=== PATIENT | female | born 1970 | race Caucasian/White ===

== ENCOUNTER → 2017-03-06 | Outpatient (CLI) | payer OTHER ==
[~2017-03-06] MED LIST: ESTR2TAB PO; L.AC1CAP6 PO; METO-270; MULT1TAB63 PO; OXYC-465 PO; PROBIOTIC
== END ==
LOC: RAD 08:52
PROVIDERS: ATTEND Obstetrics & Gynecology
DX: Z12.31 Encounter for screening mammogram for malignant neoplasm of breast (principal)
CPT/HCPCS: 77067

== ENCOUNTER → 2017-06-21 | Outpatient (CLI) | payer OTHER ==
[~2017-06-21] MED LIST changes: -METO-270; +METO-387
--- NOTE | 2017-06-21 12:16 | Diagnostic Imaging Report ---
EXAMINATION: Left upper extremity ultrasound. INDICATION: Arm lump. FINDINGS: Homogeneous hypoechoic mass with circumscribed margins is seen without internal vascularity measuring 3.8 x 1.6 x 4.6 cm centered in the subcutaneous fat. No fluid collection. No irregular or aggressive appearing margins. 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 The ultrasound appearance however is not specific. Correlate clinically. Dictated by: Dictated on workstation # [id number]
== END ==
LOC: RAD 11:39
PROVIDERS: ATTEND Surgery
DX: R22.32 Localized swelling, mass and lump, left upper limb (principal)
CPT/HCPCS: 76881

== ENCOUNTER 2017-09-05 13:40 | Day surgery (SDC) | payer OTHER ==
[2017-09-05] VITALS (10 sets, daily range): BP systolic 140–168; BP diastolic 77–97
[~2017-09-05] VITALS: Ht 172.7 cm; Wt 97.5 kg
--- OUTSIDE RECORDS SUMMARY | 2017-09-05 13:44 | XMS REPORT | Continuity of Care Document ---
Author Author [facility] Organization [facility] Address Unknown Phone Unavailable Allergies Active Description Code Type Severity Reaction Onset Reported/Identified Relationship to Patient Clinical Status Yes No Known Drug Allergies [id number] Drug Allergy Unknown N/A 06/23/2007 Medications There is no data. Problems Date Dx Coded Attending Type Code Diagnosis Diagnosed By 02/28/2015 ENEDINA IGNACIO, EMILIANO Farrar Ot V76.12 04/20/2015 Ot 786.59 04/20/2015 ENEDINA IGNACIO, EMILIANO Farrar Ot V76.12 04/20/2015 ENEDINA IGNACIO, EMILIANO Farrar Ot 240.9 04/20/2015 ENEDINA IGNACIO, EMILIANO Farrar Ot V76.12 04/20/2015 ENEDINA IGNACIO, EMILIANO Farrar Ot 240.9 04/20/2015 ENEDINA IGNACIO, EMILIANO Farrar Ot 246.2 04/20/2015 ENEDINA IGNACIO, EMILIANO Farrar Ot V76.12 04/20/2015 ENEDINA IGNACIO, EMILIANO Farrar Ot V82.9 04/20/2015 ENEDINA IGNACIO, EMILIANO Farrar Ot 793.80 04/20/2015 ENEDINA IGNACIO, EMIILANO Farrar Ot V76.12 05/06/2015 ASTRID IGNACIO, SARAH Marina Ot H53.8 05/06/2015 ASTRID IGNACIO, SARAH Marina Ot M54.2 05/06/2015 ASTRID IGNACIO, SARAH Marina Ot R13.10 05/06/2015 ASTRID IGNACIO, SARAH Marina Ot R51 11/20/2015 ENEDINA IGNACIO, EMILIANO Farrar Ot V76.12 OTH SCREEN MAMMO-MALIGN NEOPLASM OF [place]IP 11/20/2015 ENEDINA IGNACIO, EMILIANO Farrar Ot 240.9 GOITER NOS 11/20/2015 ENEDINA IGNACIO, EMILIANO Farrar Ot V76.12 OTH SCREEN MAMMO-MALIGN NEOPLASM OF [place] 11/20/2015 EMILIANO MCCONNELL MD Ot 240.9 GOITER NOS 11/20/2015 EMILIANO MCCONNELL MD Ot 246.2 CYST OF THYROID 11/20/2015 EMILIANO MCCONNELL MD, Ot V76.12 OTH SCREEN MAMMO-MALIGN NEOPLASM OF [place] 11/20/2015 EMILIANO MCCONNELL MD, Ot V82.9 SCREEN FOR CONDITION NOS 11/20/2015 EMILIANO MCCONNELL MD Ot 793.80 UNSPEC ABNORMAL MAMMOGRAM 11/20/2015 EMILIANO MCCONNELL MD, Ot V76.12 OTH SCREEN MAMMO-MALIGN NEOPLASM OF [place] 11/20/2015 SARAH RESENDIZ MD Ot H53.8 OTHER VISUAL DISTURBANCES 11/20/2015 SARAH RESENDIZ MD Ot M54.2 CERVICALGIA 11/20/2015 SARAH RESENDIZ MD Ot R13.10 DYSPHAGIA, UNSPECIFIED 11/20/2015 SARAH RESENDIZ MD Ot R51 HEADACHE 11/22/2015 CULLEN IGNACIO, JOSELIN Junior Ot G40.909 EPILEPSY, UNSP, NOT INTRACTABLE, WITHOUT 11/22/2015 CULLEN IGNACIO, JOSELIN Junior Ot I10 ESSENTIAL (PRIMARY) HYPERTENSION 11/29/2015 EMILIANO MCCONNELL MD Ot V76.12 OTH SCREEN MAMMO-MALIGN NEOPLASM OF [place] 11/29/2015 EMILIANO MCCONNELL MD Ot 240.9 GOITER NOS 11/29/2015 EMILIANO MCCONNELL MD, Ot V76.12 OTH SCREEN MAMMO-MALIGN NEOPLASM OF [place]IP 11/29/2015 EMILIANO MCCONNELL MD Ot 240.9 GOITER NOS 11/29/2015 EMILIANO MCCONNELL MD Ot 246.2 CYST OF THYROID 11/29/2015 EMILIANO MCCONNELL MD, Ot V76.12 OTH SCREEN MAMMO-MALIGN NEOPLASM OF [place]IP 11/29/2015 EMILIANO MCCONNELL MD Ot V82.9 SCREEN FOR CONDITION NOS 11/29/2015 EMILIANO MCCONNELL MD Ot 793.80 UNSPEC ABNORMAL MAMMOGRAM 11/29/2015 EMILIANO MCCONNELL MD, Ot V76.12 OTH SCREEN MAMMO-MALIGN NEOPLASM OF [place]IP 11/29/2015 SARAH RESENDIZ MD Ot H53.8 OTHER VISUAL DISTURBANCES 11/29/2015 SARAH RESENDIZ MD Ot M54.2 CERVICALGIA 11/29/2015 SARAH RESENDIZ MD Ot R13.10 DYSPHAGIA, UNSPECIFIED 11/29/2015 SARAH RESENDIZ MD Ot R51 HEADACHE 12/17/2015 EMILIANO MCCONNELL MD Ot V76.12 OTH SCREEN MAMMO-MALIGN NEOPLASM OF [place] 12/17/2015 EMILIANO MCCONNELL MD Ot 240.9 GOITER NOS 12/17/2015 EMILIANO MCCONNELL MD Ot V76.12 OTH SCREEN MAMMO-MALIGN NEOPLASM OF [place]IP 12/17/2015 EMILIANO MCCONNELL MD Ot 240.9 GOITER NOS 12/17/2015 EMILIANO MCCONNELL MD Ot 246.2 CYST OF THYROID 12/17/2015 EMILIANO MCCONNELL MD Ot V76.12 OTH SCREEN MAMMO-MALIGN NEOPLASM OF [place]IP 12/17/2015 EMILIANO MCCONNELL MD Ot V82.9 SCREEN FOR CONDITION NOS 12/17/2015 EMILIANO MCCONNELL MD Ot 793.80 UNSPEC ABNORMAL MAMMOGRAM 12/17/2015 EMILIANO MCCONNELL MD Ot V76.12 OTH SCREEN MAMMO-MALIGN NEOPLASM OF KIP 12/17/2015 SARAH RESENDIZ MD Ot H53.8 OTHER VISUAL DISTURBANCES 12/17/2015 SARAH RESENDIZ MD Ot M54.2 CERVICALGIA 12/17/2015 SARAH RESENDIZ MD Ot R13.10 DYSPHAGIA, UNSPECIFIED 12/17/2015 SARAH RESENDIZ MD Ot R51 HEADACHE 12/17/2015 LOUIS LEMOS MD Ot R06.02 SHORTNESS OF BREATH 12/17/2015 LOUIS LEMOS MD Ot R07.89 OTHER CHEST PAIN 12/17/2015 LOUIS LEMOS MD Ot R55 SYNCOPE AND COLLAPSE 12/20/2015 EMILIANO MCCONNELL MD Ot V76.12 OTH SCREEN MAMMO-MALIGN NEOPLASM OF [place] 12/20/2015 EMILIANO MCCONNELL MD Ot 240.9 GOITER NOS 12/20/2015 EMILIANO MCCONNELL MD, Ot V76.12 OTH SCREEN MAMMO-MALIGN NEOPLASM OF KIP 12/20/2015 EMILIANO MCCONNELL MD Ot 240.9 GOITER NOS 12/20/2015 EMILIANO MCCONNELL MD, Ot 246.2 CYST OF THYROID 12/20/2015 EMILIANO MCCONNELL MD, Ot V76.12 OTH SCREEN MAMMO-MALIGN NEOPLASM OF KIP 12/20/2015 EMILIANO MCCONNELL MD Ot V82.9 SCREEN FOR CONDITION NOS 12/20/2015 EMILIANO MCCONNELL MD Ot 793.80 UNSPEC ABNORMAL MAMMOGRAM 12/20/2015 EMILIANO MCCONNELL MD, Ot V76.12 OTH SCREEN MAMMO-MALIGN NEOPLASM OF KIP 12/20/2015 ASTRID IGNACIO, SARAH Marina Ot H53.8 OTHER VISUAL DISTURBANCES 12/20/2015 SARAH RESENDIZ MD Ot M54.2 CERVICALGIA 12/20/2015 ASTRID IGNACIO, SARAH Marina Ot R13.10 DYSPHAGIA, UNSPECIFIED 12/20/2015 ASTRID IGNACIO, SARAH Marina Ot R51 HEADACHE 12/20/2015 LOUIS LEMOS MD Ot R06.02 SHORTNESS OF BREATH 12/20/2015 LOUIS LEMOS MD Ot R07.89 OTHER CHEST PAIN 12/20/2015 LOUIS LEMOS MD Ot R55 SYNCOPE AND COLLAPSE 01/28/2016 EMILIANO MCCONNELL MD Ot V76.12 OTH SCREEN MAMMO-MALIGN NEOPLASM OF KIP 01/28/2016 EMILIANO MCCONNELL MD Ot 240.9 GOITER NOS 01/28/2016 EMILIANO MCCONNELL MD, Ot V76.12 OTH SCREEN MAMMO-MALIGN NEOPLASM OF KIP 01/28/2016 EMILIANO MCCONNELL MD Ot 240.9 GOITER NOS 01/28/2016 EMILIANO MCCONNELL MD, Ot 246.2 CYST OF THYROID 01/28/2016 EMILIANO MCCONNELL MD, Ot V76.12 OTH SCREEN MAMMO-MALIGN NEOPLASM OF [place]IP 01/28/2016 EMILIANO MCCONNELL MD Ot V82.9 SCREEN FOR CONDITION NOS 01/28/2016 EMILIANO MCCONNELL MD Ot 793.80 UNSPEC ABNORMAL MAMMOGRAM 01/28/2016 ENEDINA IGNACIO, EMILIANO Farrar Ot V76.12 OTH SCREEN MAMMO-MALIGN NEOPLASM OF KIP 01/28/2016 SARAH RESENDIZ MD Ot H53.8 OTHER VISUAL DISTURBANCES 01/28/2016 SARAH RESENDIZ MD Ot M54.2 CERVICALGIA 01/28/2016 SARAH RESENDIZ MD Ot R13.10 DYSPHAGIA, UNSPECIFIED 01/28/2016 SARAH RESENDIZ MD Ot R51 HEADACHE 01/28/2016 CANELO IGNACIO, LOUIS Benavides Ot R06.02 SHORTNESS OF BREATH 01/28/2016 LOUIS LEMOS MD Ot R07.89 OTHER CHEST PAIN 01/28/2016 LOUIS LEMOS MD Ot R55 SYNCOPE AND COLLAPSE 01/28/2016 GONZALO JONES MD Ot R42 DIZZINESS AND GIDDINESS 01/28/2016 GONZALO JONES MD Ot R55 SYNCOPE AND COLLAPSE 01/28/2016 GONZALO JONES MD Ot T67.5XXA HEAT EXHAUSTION, UNSPECIFIED, INITIAL EN 01/30/2016 GONZALO JONES MD Ot R42 DIZZINESS AND GIDDINESS 01/30/2016 GONZALO JONES MD Ot R55 SYNCOPE AND COLLAPSE 01/30/2016 GONZALO JONES MD Ot T67.5XXA HEAT EXHAUSTION, UNSPECIFIED, INITIAL EN 01/30/2016 GONZALO JONES MD Ot R42 DIZZINESS AND GIDDINESS 01/30/2016 GONZALO JONES MD Ot R55 SYNCOPE AND COLLAPSE 01/30/2016 GONZALO JONES MD Ot T67.5XXA HEAT EXHAUSTION, UNSPECIFIED, INITIAL EN 02/01/2016 GONZALO JONES MD Ot R42 DIZZINESS AND GIDDINESS 02/01/2016 GONZALO JONES MD Ot R55 SYNCOPE AND COLLAPSE 02/01/2016 GONZALO JONES MD Ot T67.5XXA HEAT EXHAUSTION, UNSPECIFIED, INITIAL EN 03/07/2016 EMILIANO MCCONNELL MD Ot 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 03/08/2016 EMILIANO MCCONNELL MD Ot 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 03/30/2016 EMILIANO MCCONNELL MD Ot 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 04/04/2016 EMILIANO MCCONNELL MD, Ot 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 04/20/2016 EMILIANO MCCONNELL MD, Ot V76.12 OTH SCREEN MAMMO-MALIGN NEOPLASM OF KIP 04/20/2016 EMILIANO MCCONNELL MD Ot 240.9 GOITER NOS 04/20/2016 EMILIANO MCCONNELL MD, Ot V76.12 OTH SCREEN MAMMO-MALIGN NEOPLASM OF KIP 04/20/2016 EMILIANO MCCONNELL MD Ot 240.9 GOITER NOS 04/20/2016 EMILIANO MCCONNELL MD Ot 246.2 CYST OF THYROID 04/20/2016 EMILIANO MCCONNELL MD, Ot V76.12 OTH SCREEN MAMMO-MALIGN NEOPLASM OF KIP 04/20/2016 EMILIANO MCCONNELL MD Ot V82.9 SCREEN FOR CONDITION NOS 04/20/2016 EMILIANO MCCONNELL MD Ot 793.80 UNSPEC ABNORMAL MAMMOGRAM 04/20/2016 EMILIANO MCCONNELL MD, Ot V76.12 OTH SCREEN MAMMO-MALIGN NEOPLASM OF KIP 04/20/2016 SARAH RESENDIZ MD Ot H53.8 OTHER VISUAL DISTURBANCES 04/20/2016 SARAH RESENDIZ MD Ot M54.2 CERVICALGIA 04/20/2016 SARAH RESENDIZ MD Ot R13.10 DYSPHAGIA, UNSPECIFIED 04/20/2016 SARAH RESENDIZ MD Ot R51 HEADACHE 04/20/2016 LOUIS LEMOS MD Ot R06.02 SHORTNESS OF BREATH 04/20/2016 LOUIS LEMOS MD Ot R07.89 OTHER CHEST PAIN 04/20/2016 LOUIS LEMOS MD Ot R55 SYNCOPE AND COLLAPSE 04/20/2016 LOUIS LEMOS MD Ot I10 ESSENTIAL (PRIMARY) HYPERTENSION 04/20/2016 LOUIS LEMOS MD Ot I25.10 ATHSCL HEART DISEASE OF [place] CORONARY 04/20/2016 LOUIS LEMOS MD Ot R07.89 OTHER CHEST PAIN 04/20/2016 LOUIS LEMOS MD Ot R55 SYNCOPE AND COLLAPSE 04/20/2016 EMILIANO MCCONNELL MD, Ot 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 04/20/2016 EMILIANO MCCONNELL MD, Ot 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 04/20/2016 LEE COBIAN MD Ot D64.9 ANEMIA, UNSPECIFIED 04/20/2016 LEE COBIAN MD Ot K82.8 OTHER SPECIFIED DISEASES OF [place]ALLBLAD[place] 04/20/2016 LEE COBIAN MD Ot N83.201 UNSPECIFIED OVARIAN CYST, RIGHT SIDE 04/20/2016 LEE COBIAN MD Ot Z01.812 ENCOUNTER FOR PREPROCEDURAL LABORATORY E 04/20/2016 LEE COBIAN MD, Ot Z11.2 ENCOUNTER FOR SCREENING FOR OTHER BACTER 04/23/2016 LEE COBIAN MD, Ot D64.9 ANEMIA, UNSPECIFIED 04/23/2016 LEE COBIAN MD Ot K82.8 OTHER SPECIFIED DISEASES OF [place] 04/23/2016 LEE COBIAN MD Ot N83.201 UNSPECIFIED OVARIAN CYST, RIGHT SIDE 04/23/2016 LEE COBIAN MD Ot Z01.812 ENCOUNTER FOR PREPROCEDURAL LABORATORY E 04/23/2016 LEE COBIAN MD Ot Z11.2 ENCOUNTER FOR SCREENING FOR OTHER BACTER 04/27/2016 LEE COBIAN MD Ot K81.1 CHRONIC CHOLECYSTITIS 04/27/2016 LEE COBIAN MD Ot N83.201 UNSPECIFIED OVARIAN CYST, RIGHT SIDE 04/27/2016 LEE COBIAN MD Ot R10.2 PELVIC AND PERINEAL PAIN 04/30/2016 LEE COBIAN MD Ot K81.1 CHRONIC CHOLECYSTITIS 04/30/2016 LEE COBIAN MD Ot N83.201 UNSPECIFIED OVARIAN CYST, RIGHT SIDE 04/30/2016 LEE COBIAN MD Ot R10.2 PELVIC AND PERINEAL PAIN 05/03/2016 SEVERIANO MALDONADO MD Ot G89.18 OTHER ACUTE POSTPROCEDURAL PAIN 05/03/2016 SEVERIANO MALDONADO MD Ot R10.31 RIGHT LOWER QUADRANT PAIN 05/08/2016 Sandi ALATORRE MD Ot 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 05/08/2016 Sandi ALATORRE MD Ot R55 SYNCOPE AND COLLAPSE 05/08/2016 CELI IGNACIO, Sandi JACOB Ot Z79.899 OTHER SHELTER (CURRENT) DRUG THERAPY 05/22/2016 Sandi ALATORRE MD Ot 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 05/22/2016 Sandi ALATORRE MD Ot R55 SYNCOPE AND COLLAPSE 05/22/2016 Sandi ALATORRE MD Ot Z79.899 OTHER SHELTER (CURRENT) DRUG THERAPY 05/24/2016 Sandi ALATORRE MD NIDIA Ot 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 05/24/2016 Sandi ALATORRE MD NIDIA Ot R55 SYNCOPE AND COLLAPSE 05/24/2016 Sandi ALATORRE MD Ot Z79.899 OTHER SHELTER (CURRENT) DRUG THERAPY 05/24/2016 Sandi ALATORRE MD Ot 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 05/24/2016 Sandi ALATORRE MD Ot R55 SYNCOPE AND COLLAPSE 05/24/2016 Sandi ALATORRE MD NIDIA Ot Z79.899 OTHER ASSOCIATE PROGRAMMER (CURRENT) DRUG THERAPY 03/04/2017 EMILIANO MCCONNELL MD Ot V76.12 OTH SCREEN MAMMO-MALIGN NEOPLASM OF KIP 03/04/2017 EMILIANO MCCONNELL MD Ot 240.9 GOITER NOS 03/04/2017 EMILIANO MCCONNELL MD Ot V76.12 OTH SCREEN MAMMO-MALIGN NEOPLASM OF [place] 03/04/2017 EMILIANO MCCONNELL MD Ot 240.9 GOITER NOS 03/04/2017 EMILIANO MCCONNELL MD Ot 246.2 CYST OF THYROID 03/04/2017 EMILIANO MCCONNELL MD, Ot V76.12 OTH SCREEN MAMMO-MALIGN NEOPLASM OF [place] 03/04/2017 EMILIANO MCCONNELL MD, Ot V82.9 SCREEN FOR CONDITION NOS 03/04/2017 EMILIANO MCCONNELL MD Ot 793.80 UNSPEC ABNORMAL MAMMOGRAM 03/04/2017 EMILIANO MCCONNELL MD, Ot V76.12 OTH SCREEN MAMMO-MALIGN NEOPLASM OF [place]IP 03/04/2017 SARAH RESENDIZ MD Ot H53.8 OTHER VISUAL DISTURBANCES 03/04/2017 SARAH RESENDIZ MD Ot M54.2 CERVICALGIA 03/04/2017 SARAH RESENDIZ MD Ot R13.10 DYSPHAGIA, UNSPECIFIED 03/04/2017 SARAH RESENDIZ MD Ot R51 HEADACHE 03/04/2017 LOUIS LEMOS MD Ot R06.02 SHORTNESS OF BREATH 03/04/2017 LOUIS LEMOS MD Ot R07.89 OTHER CHEST PAIN 03/04/2017 LOUIS LEMOS MD Ot R55 SYNCOPE AND COLLAPSE 03/04/2017 LOUIS LEMOS MD Ot I10 ESSENTIAL (PRIMARY) HYPERTENSION 03/04/2017 LOUIS LEMOS MD Ot I25.10 ATHSCL HEART DISEASE OF [place] CORONARY 03/04/2017 LOUIS LEMOS MD Ot R07.89 OTHER CHEST PAIN 03/04/2017 LOUIS LEMOS MD Ot R55 SYNCOPE AND COLLAPSE 03/04/2017 EMILIANO MCCONNELL MD Ot 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 03/04/2017 EMILIANO MCCONNELL MD, Ot 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 04/15/2017 EMILIANO MCCONNELL MD, Ot V76.12 OTH SCREEN MAMMO-MALIGN NEOPLASM OF KIP 04/15/2017 EMILIANO MCCONNELL MD Ot 240.9 GOITER NOS 04/15/2017 EMILIANO MCCONNELL MD, Ot V76.12 OTH SCREEN MAMMO-MALIGN NEOPLASM OF KIP 04/15/2017 EMILIANO MCCONNELL MD Ot 240.9 GOITER NOS 04/15/2017 EMILIANO MCCONNELL MD Ot 246.2 CYST OF THYROID 04/15/2017 EMILIANO MCCONNELL MD, Ot V76.12 OTH SCREEN MAMMO-MALIGN NEOPLASM OF KIP 04/15/2017 EMILIANO MCCONNELL MD, Ot V82.9 SCREEN FOR CONDITION NOS 04/15/2017 EMILIANO MCCONNELL MD Ot 793.80 UNSPEC ABNORMAL MAMMOGRAM 04/15/2017 EMILIANO MCCONNELL MD, Ot V76.12 OTH SCREEN MAMMO-MALIGN NEOPLASM OF KIP 04/15/2017 SARAH RESENDIZ MD Ot H53.8 OTHER VISUAL DISTURBANCES 04/15/2017 SARAH RESENDIZ MD Ot M54.2 CERVICALGIA 04/15/2017 SARAH RESENDIZ MD Ot R13.10 DYSPHAGIA, UNSPECIFIED 04/15/2017 SARAH RESENDIZ MD Ot R51 HEADACHE 04/15/2017 LOUIS LEMOS MD Ot R06.02 SHORTNESS OF BREATH 04/15/2017 LOUIS LEMOS MD Ot R07.89 OTHER CHEST PAIN 04/15/2017 LOUIS LEMOS MD Ot R55 SYNCOPE AND COLLAPSE 04/15/2017 LOUIS LEMOS MD Ot I10 ESSENTIAL (PRIMARY) HYPERTENSION 04/15/2017 LOUIS LEMOS MD Ot I25.10 ATHSCL HEART DISEASE OF [place] CORONARY 04/15/2017 LOUIS LEMOS MD Ot R07.89 OTHER CHEST PAIN 04/15/2017 LOUIS LEMOS MD Ot R55 SYNCOPE AND COLLAPSE 04/15/2017 EMILIANO MCCONNELL MD Ot 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 04/15/2017 EMILIANO MCCONNELL MD, Ot 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 04/15/2017 EMILIANO MCCONNELL MD, Ot Z12.31 ENCNTR SCREEN MAMMOGRAM FOR MALIGNANT NE 05/14/2017 EMILIANO MCCONNELL MD, Ot V76.12 OTH SCREEN MAMMO-MALIGN NEOPLASM OF KIP 05/14/2017 EMILIANO MCCONNELL MD Ot 240.9 GOITER NOS 05/14/2017 EMILIANO MCCONNELL MD, Ot V76.12 OTH SCREEN MAMMO-MALIGN NEOPLASM OF KIP 05/14/2017 EMILIANO MCCONNELL MD, Ot 240.9 GOITER NOS 05/14/2017 EMILIANO MCCONNELL MD, Ot 246.2 CYST OF THYROID 05/14/2017 EMILIANO MCCONNELL MD, Ot V76.12 OTH SCREEN MAMMO-MALIGN NEOPLASM OF KIP 05/14/2017 EMILIANO MCCONNELL MD, Ot V82.9 SCREEN FOR CONDITION NOS 05/14/2017 EMILIANO MCCONNELL MD Ot 793.80 UNSPEC ABNORMAL MAMMOGRAM 05/14/2017 EMILIANO MCCONNELL MD, Ot V76.12 OTH SCREEN MAMMO-MALIGN NEOPLASM OF KIP 05/14/2017 SARAH RESENDIZ MD Ot H53.8 OTHER VISUAL DISTURBANCES 05/14/2017 SARAH RESENDIZ MD Ot M54.2 CERVICALGIA 05/14/2017 SARAH RESENDIZ MD Ot R13.10 DYSPHAGIA, UNSPECIFIED 05/14/2017 SARAH RESENDIZ MD Ot R51 HEADACHE 05/14/2017 LOUIS LEMOS MD Ot R06.02 SHORTNESS OF BREATH 05/14/2017 LOUIS LEMOS MD Ot R07.89 OTHER CHEST PAIN 05/14/2017 LOUIS LEMOS MD Ot R55 SYNCOPE AND COLLAPSE 05/14/2017 LOUIS LEMOS MD Ot I10 ESSENTIAL (PRIMARY) HYPERTENSION 05/14/2017 LOUIS LEMOS MD Ot I25.10 ATHSCL HEART DISEASE OF [place] CORONARY 05/14/2017 LOUIS LEMOS MD Ot R07.89 OTHER CHEST PAIN 05/14/2017 LOUIS LEMOS MD Ot R55 SYNCOPE AND COLLAPSE 05/14/2017 EMILIANO MCCONNELL MD, Ot 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 05/14/2017 EMILIANO MCCONNELL MD, Ot 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 05/14/2017 EMILIANO MCCONNELL MD Ot Z12.31 ENCNTR SCREEN MAMMOGRAM FOR MALIGNANT NE 06/13/2017 EMILIANO MCCONNELL MD, Ot V76.12 OTH SCREEN MAMMO-MALIGN NEOPLASM OF KIP 06/13/2017 EMILIANO MCCONNELL MD Ot 240.9 GOITER NOS 06/13/2017 EMILIANO MCCONNELL MD, Ot V76.12 OTH SCREEN MAMMO-MALIGN NEOPLASM OF KIP 06/13/2017 EMILIANO MCCONNELL MD, Ot 240.9 GOITER NOS 06/13/2017 EMILIANO MCCONNELL MD Ot 246.2 CYST OF THYROID 06/13/2017 EMILIANO MCCONNELL MD, Ot V76.12 OTH SCREEN MAMMO-MALIGN NEOPLASM OF KIP 06/13/2017 EMILIANO MCCONNELL MD Ot V82.9 SCREEN FOR CONDITION NOS 06/13/2017 EMILIANO MCCONNELL MD Ot 793.80 UNSPEC ABNORMAL MAMMOGRAM 06/13/2017 EMILIANO MCCONNELL MD, Ot V76.12 OTH SCREEN MAMMO-MALIGN NEOPLASM OF KIP 06/13/2017 SARAH RESENDIZ MD Ot H53.8 OTHER VISUAL DISTURBANCES 06/13/2017 SARAH RESENDIZ MD Ot M54.2 CERVICALGIA 06/13/2017 SARAH RESENDIZ MD Ot R13.10 DYSPHAGIA, UNSPECIFIED 06/13/2017 SARAH RESENDIZ MD Ot R51 HEADACHE 06/13/2017 LOUIS LEMOS MD Ot R06.02 SHORTNESS OF BREATH 06/13/2017 LOUIS LEMOS MD Ot R07.89 OTHER CHEST PAIN 06/13/2017 LOUIS LEMOS MD Ot R55 SYNCOPE AND COLLAPSE 06/13/2017 LOUIS LEMOS MD Ot I10 ESSENTIAL (PRIMARY) HYPERTENSION 06/13/2017 LOUIS LEMOS MD Ot I25.10 ATHSCL HEART DISEASE OF [place] CORONARY 06/13/2017 LOUIS LEMOS MD Ot R07.89 OTHER CHEST PAIN 06/13/2017 LOUIS LEMOS MD Ot R55 SYNCOPE AND COLLAPSE 06/13/2017 EMILIANO MCCONNELL MD, Ot 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 06/13/2017 EMILIANO MCCONNELL MD, Ot 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 06/13/2017 EMILIANO MCCONNELL MD, Ot Z12.31 ENCNTR SCREEN MAMMOGRAM FOR MALIGNANT NE 06/13/2017 EMILIANO MCCONNELL MD, Ot V76.12 OTH SCREEN MAMMO-MALIGN NEOPLASM OF KIP 06/13/2017 EMILIANO MCCONNELL MD Ot 240.9 GOITER NOS 06/13/2017 EMILIANO MCCONNELL MD, Ot V76.12 OTH SCREEN MAMMO-MALIGN NEOPLASM OF KIP 06/13/2017 EMILIANO MCCONNELL MD Ot 240.9 GOITER NOS 06/13/2017 EMILIANO MCCONNELL MD, Ot 246.2 CYST OF THYROID 06/13/2017 EMILIANO MCCONNELL MD, Ot V76.12 OTH SCREEN MAMMO-MALIGN NEOPLASM OF KIP 06/13/2017 EMILIANO MCCONNELL MD, Ot V82.9 SCREEN FOR CONDITION NOS 06/13/2017 EMILIANO MCCONNELL MD Ot 793.80 UNSPEC ABNORMAL MAMMOGRAM 06/13/2017 EMILIANO MCCONNELL MD, Ot V76.12 OTH SCREEN MAMMO-MALIGN NEOPLASM OF KIP 06/13/2017 SARAH RESENDIZ MD Ot H53.8 OTHER VISUAL DISTURBANCES 06/13/2017 SARAH RESENDIZ MD Ot M54.2 CERVICALGIA 06/13/2017 SARAH RESENDIZ MD Ot R13.10 DYSPHAGIA, UNSPECIFIED 06/13/2017 SARAH RESENDIZ MD Ot R51 HEADACHE 06/13/2017 LOUIS LEMOS MD Ot R06.02 SHORTNESS OF BREATH 06/13/2017 LOUIS LEMOS MD Ot R07.89 OTHER CHEST PAIN 06/13/2017 LOUIS LEMOS MD Ot R55 SYNCOPE AND COLLAPSE 06/13/2017 LOUIS LEMOS MD Ot I10 ESSENTIAL (PRIMARY) HYPERTENSION 06/13/2017 LOUIS LEMOS MD Ot I25.10 ATHSCL HEART DISEASE OF [place] CORONARY 06/13/2017 LOUIS LEMOS MD Ot R07.89 OTHER CHEST PAIN 06/13/2017 LOUIS LEMOS MD Ot R55 SYNCOPE AND COLLAPSE 06/13/2017 EMILIANO MCCONNELL MD, Ot 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 06/13/2017 EMILIANO MCCONNELL MD, Ot 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 06/13/2017 EMILIANO MCCONNELL MD, Ot Z12.31 ENCNTR SCREEN MAMMOGRAM FOR MALIGNANT NE 06/18/2017 EMILIANO MCCONNELL MD, Ot V76.12 OTH SCREEN MAMMO-MALIGN NEOPLASM OF KIP 06/18/2017 EMILIANO MCCONNELL MD Ot 240.9 GOITER NOS 06/18/2017 EMILIANO MCCONNELL MD, Ot V76.12 OTH SCREEN MAMMO-MALIGN NEOPLASM OF [place] 06/18/2017 EMILIANO MCCONNELL MD Ot 240.9 GOITER NOS 06/18/2017 EMILIANO MCCONNELL MD Ot 246.2 CYST OF THYROID 06/18/2017 EMILIANO MCCONNELL MD, Ot V76.12 OTH SCREEN MAMMO-MALIGN NEOPLASM OF [place] 06/18/2017 EMILIANO MCCONNELL MD Ot V82.9 SCREEN FOR CONDITION NOS 06/18/2017 EMILIANO MCCONNELL MD Ot 793.80 UNSPEC ABNORMAL MAMMOGRAM 06/18/2017 EMILIANO MCCONNELL MD, Ot V76.12 OTH SCREEN MAMMO-MALIGN NEOPLASM OF [place] 06/18/2017 SARAH RESENDIZ MD Ot H53.8 OTHER VISUAL DISTURBANCES 06/18/2017 SARAH RESENDIZ MD Ot M54.2 CERVICALGIA 06/18/2017 SARAH RESENDIZ MD Ot R13.10 DYSPHAGIA, UNSPECIFIED 06/18/2017 SARAH RESENDIZ MD Ot R51 HEADACHE 06/18/2017 LOUIS LEMOS MD Ot R06.02 SHORTNESS OF BREATH 06/18/2017 LOUIS LEMOS MD Ot R07.89 OTHER CHEST PAIN 06/18/2017 LOUIS LEMOS MD Ot R55 SYNCOPE AND COLLAPSE 06/18/2017 LOUIS LEMOS MD Ot I10 ESSENTIAL (PRIMARY) HYPERTENSION 06/18/2017 LOUIS LEMOS MD Ot I25.10 ATHSCL HEART DISEASE OF [place] CORONARY 06/18/2017 LOUIS LEMOS MD Ot R07.89 OTHER CHEST PAIN 06/18/2017 LOUIS LEMOS MD Ot R55 SYNCOPE AND COLLAPSE 06/18/2017 EMILIANO MCCONNELL MD, Ot 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 06/18/2017 EMILIANO MCCONNELL MD, Ot 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 06/18/2017 EMILIANO MCCONNELL MD Ot Z12.31 ENCNTR SCREEN MAMMOGRAM FOR MALIGNANT NE 06/19/2017 EMILIANO MCCONNELL MD, Ot V76.12 OTH SCREEN MAMMO-MALIGN NEOPLASM OF [place] 06/19/2017 EMILIANO MCCONNELL MD Ot 240.9 GOITER NOS 06/19/2017 EMILIANO MCCONNELL MD, Ot V76.12 OTH SCREEN MAMMO-MALIGN NEOPLASM OF [place] 06/19/2017 EMILIANO MCCONNELL MD Ot 240.9 GOITER NOS 06/19/2017 EMILIANO MCCONNELL MD Ot 246.2 CYST OF THYROID 06/19/2017 EMILIANO MCCONNELL MD, Ot V76.12 OTH SCREEN MAMMO-MALIGN NEOPLASM OF [place] 06/19/2017 EMILIANO MCCONNELL MD Ot V82.9 SCREEN FOR CONDITION NOS 06/19/2017 EMILIANO MCCONNELL MD Ot 793.80 UNSPEC ABNORMAL MAMMOGRAM 06/19/2017 EMILIANO MCCONNELL MD, Ot V76.12 OTH SCREEN MAMMO-MALIGN NEOPLASM OF [place] 06/19/2017 SARAH RESENDIZ MD Ot H53.8 OTHER VISUAL DISTURBANCES 06/19/2017 SARAH RESENDIZ MD Ot M54.2 CERVICALGIA 06/19/2017 SARAH RESENDIZ MD Ot R13.10 DYSPHAGIA, UNSPECIFIED 06/19/2017 SARAH RESENDIZ MD Ot R51 HEADACHE 06/19/2017 LOUIS LEMOS MD Ot R06.02 SHORTNESS OF BREATH 06/19/2017 LOUIS LEMOS MD Ot R07.89 OTHER CHEST PAIN 06/19/2017 LOUIS LEMOS MD Ot R55 SYNCOPE AND COLLAPSE 06/19/2017 LOUIS LEMOS MD Ot I10 ESSENTIAL (PRIMARY) HYPERTENSION 06/19/2017 LOUIS LEMOS MD Ot I25.10 ATHSCL HEART DISEASE OF [place] CORONARY 06/19/2017 LOUIS LEMOS MD Ot R07.89 OTHER CHEST PAIN 06/19/2017 LOUIS LEMOS MD Ot R55 SYNCOPE AND COLLAPSE 06/19/2017 EMILIANO MCCONNELL MD, Ot 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 06/19/2017 EMILIANO MCCONNELL MD, Ot 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 06/19/2017 EMILIANO MCCONNELL MD, Ot Z12.31 ENCNTR SCREEN MAMMOGRAM FOR MALIGNANT NE 07/10/2017 EMILIANO MCCONNELL MD, Ot V76.12 OTH SCREEN MAMMO-MALIGN NEOPLASM OF [place] 07/10/2017 EMILIANO MCCONNELL MD Ot 240.9 GOITER NOS 07/10/2017 EMILIANO MCCONNELL MD, Ot V76.12 OTH SCREEN MAMMO-MALIGN NEOPLASM OF [place] 07/10/2017 EMILIANO MCCONNELL MD Ot 240.9 GOITER NOS 07/10/2017 EMILIANO MCCONNELL MD Ot 246.2 CYST OF THYROID 07/10/2017 EMILIANO MCCONNELL MD, Ot V76.12 OTH SCREEN MAMMO-MALIGN NEOPLASM OF [place] 07/10/2017 EMILIANO MCCONNELL MD Ot V82.9 SCREEN FOR CONDITION NOS 07/10/2017 EMILIANO MCCONNELL MD Ot 793.80 UNSPEC ABNORMAL MAMMOGRAM 07/10/2017 EMILIANO MCCONNELL MD, Ot V76.12 OTH SCREEN MAMMO-MALIGN NEOPLASM OF [place] 07/10/2017 SARAH RESENDIZ MD Ot H53.8 OTHER VISUAL DISTURBANCES 07/10/2017 SARAH RESENDIZ MD Ot M54.2 CERVICALGIA 07/10/2017 SARAH RESENDIZ MD Ot R13.10 DYSPHAGIA, UNSPECIFIED 07/10/2017 SARAH RESENDIZ MD Ot R51 HEADACHE 07/10/2017 LOUIS LEMOS MD Ot R06.02 SHORTNESS OF BREATH 07/10/2017 LOUIS LEMOS MD Ot R07.89 OTHER CHEST PAIN 07/10/2017 LOUIS LEMOS MD Ot R55 SYNCOPE AND COLLAPSE 07/10/2017 LOUIS LEMOS MD Ot I10 ESSENTIAL (PRIMARY) HYPERTENSION 07/10/2017 LOUIS LEMOS MD Ot I25.10 ATHSCL HEART DISEASE OF [place] CORONARY 07/10/2017 LOUIS LEMOS MD Ot R07.89 OTHER CHEST PAIN 07/10/2017 LOUIS LEMOS MD Ot R55 SYNCOPE AND COLLAPSE 07/10/2017 EMILIANO MCCONNELL MD Ot 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 07/10/2017 ENEDINA MD, EMILIANO G Ot 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 07/10/2017 EMILIANO MCCONNELL MD, Ot Z12.31 ENCNTR SCREEN MAMMOGRAM FOR MALIGNANT NE 07/10/2017 HUMBERTO IGNACIO, TAYLOR Junior Ot R22.32 LOCALIZED SWELLING, MASS AND LUMP, LEFT 08/05/2017 EMILIANO MCCONNELL MD, Ot V76.12 OTH SCREEN MAMMO-MALIGN NEOPLASM OF [place] 08/05/2017 EMILIANO MCCONNELL MD Ot 240.9 GOITER NOS 08/05/2017 EMILIANO MCCONNELL MD, Ot V76.12 OTH SCREEN MAMMO-MALIGN NEOPLASM OF [place] 08/05/2017 EMILIANO MCCONNELL MD Ot 240.9 GOITER NOS 08/05/2017 EMILIANO MCCONNELL MD Ot 246.2 CYST OF THYROID 08/05/2017 EMILIANO MCCONNELL MD, Ot V76.12 OTH SCREEN MAMMO-MALIGN NEOPLASM OF [place] 08/05/2017 EMILIANO MCCONNELL MD Ot V82.9 SCREEN FOR CONDITION NOS 08/05/2017 EMILIANO MCCONNELL MD Ot 793.80 UNSPEC ABNORMAL MAMMOGRAM 08/05/2017 EMILIANO MCCONNELL MD, Ot V76.12 OTH SCREEN MAMMO-MALIGN NEOPLASM OF [place] 08/05/2017 SARAH RESENDIZ MD Ot H53.8 OTHER VISUAL DISTURBANCES 08/05/2017 SARAH RESENDIZ MD Ot M54.2 CERVICALGIA 08/05/2017 SARAH RESENDIZ MD Ot R13.10 DYSPHAGIA, UNSPECIFIED 08/05/2017 SARAH RESENDIZ MD Ot R51 HEADACHE 08/05/2017 LOUIS LEMOS MD Ot R06.02 SHORTNESS OF BREATH 08/05/2017 LOUIS LEMOS MD Ot R07.89 OTHER CHEST PAIN 08/05/2017 LOUIS LEMOS MD Ot R55 SYNCOPE AND COLLAPSE 08/05/2017 LOUIS LEMOS MD Ot I10 ESSENTIAL (PRIMARY) HYPERTENSION 08/05/2017 LOUIS LEMOS MD Ot I25.10 ATHSCL HEART DISEASE OF [place] CORONARY 08/05/2017 LOUIS LEMOS MD Ot R07.89 OTHER CHEST PAIN 08/05/2017 CANELO IGNACIO, LOUIS Benavides Ot R55 SYNCOPE AND COLLAPSE 08/05/2017 EMILIANO MCCONNELL MD Ot 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 08/05/2017 EMILIANO MCCONNELL MD, Ot 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 08/05/2017 EMILIANO MCCONNELL MD Ot Z12.31 ENCNTR SCREEN MAMMOGRAM FOR MALIGNANT NE 08/05/2017 HUMBERTO IGNACIO, TAYLOR Junior Ot R22.32 LOCALIZED SWELLING, MASS AND LUMP, LEFT Procedures There is no data. Results Test Result Range Complete blood count (CBC) with automated white blood cell (WBC) differential - 04/20/16 09:25 Blood leukocytes automated count (number/volume) 7.5 10*3/uL 4.3-11.0 Blood erythrocytes automated count (number/volume) 4.86 10*6/uL 4.35-5.85 Venous blood hemoglobin measurement (mass/volume) 14.3 g/dL 11.5-16.0 Blood hematocrit (volume fraction) 43 % 35-52 Automated erythrocyte mean corpuscular volume 89 [foz_us] 80-99 Automated erythrocyte mean corpuscular hemoglobin (mass per erythrocyte) 29 pg 25-34 Automated erythrocyte mean corpuscular hemoglobin concentration measurement ( mass/volume) 33 g/dL 32-36 Automated erythrocyte distribution width ratio 12.7 % 10.0-14.5 Automated blood platelet count (count/volume) 313 10*3/uL 130-400 Automated blood platelet mean volume measurement 10.6 [foz_us] 7.4-10.4 Automated blood neutrophils/100 leukocytes 67 % 42-75 Automated blood lymphocytes/100 leukocytes 25 % 12-44 Blood monocytes/100 leukocytes 6 % 0-12 Automated blood eosinophils/100 leukocytes 1 % 0-10 Automated blood basophils/100 leukocytes 0 % 0-10 Blood neutrophils automated count (number/volume) 5.1 10*3 1.8-7.8 Blood lymphocytes automated count (number/volume) 1.9 10*3 1.0-4.0 Blood monocytes automated count (number/volume) 0.5 10*3 0.0-1.0 Automated eosinophil count 0.1 10*3/uL 0.0-0.3 Automated blood basophil count (count/volume) 0.0 10*3/uL 0.0-0.1 Methicillin resistant Staphylococcus aureus (MRSA) screening culture - 09:25 Methicillin resistant Staphylococcus aureus (MRSA) screening culture NEG NRG Complete blood count (CBC) with automated white blood cell (WBC) differential - 05/03/16 09:10 Blood leukocytes automated count (number/volume) 9.5 10*3/uL 4.3-11.0 Blood erythrocytes automated count (number/volume) 4.62 10*6/uL 4.35-5.85 Venous blood hemoglobin measurement (mass/volume) 13.6 g/dL 11.5-16.0 Blood hematocrit (volume fraction) 41 % 35-52 Automated erythrocyte mean corpuscular volume 89 [foz_us] 80-99 Automated erythrocyte mean corpuscular hemoglobin (mass per erythrocyte) 29 pg 25-34 Automated erythrocyte mean corpuscular hemoglobin concentration measurement ( mass/volume) 33 g/dL 32-36 Automated erythrocyte distribution width ratio 13.0 % 10.0-14.5 Automated blood platelet count (count/volume) 320 10*3/uL 130-400 Automated blood platelet mean volume measurement 10.0 [foz_us] 7.4-10.4 Automated blood neutrophils/100 leukocytes 63 % 42-75 Automated blood lymphocytes/100 leukocytes 24 % 12-44 Blood monocytes/100 leukocytes 8 % 0-12 Automated blood eosinophils/100 leukocytes 4 % 0-10 Automated blood basophils/100 leukocytes 0 % 0-10 Blood neutrophils automated count (number/volume) 6.0 10*3 1.8-7.8 Blood lymphocytes automated count (number/volume) 2.3 10*3 1.0-4.0 Blood monocytes automated count (number/volume) 0.8 10*3 0.0-1.0 Automated eosinophil count 0.4 10*3/uL 0.0-0.3 Automated blood basophil count (count/volume) 0.0 10*3/uL 0.0-0.1 Complete urinalysis with reflex to culture - 05/03/16 09:40 Urine color determination YELLOW NRG Urine clarity determination CLEAR NRG Urine pH measurement by test strip 5 5-9 Specific gravity of urine by test strip 1.010 1.016- 1.022 Urine protein assay by test strip, semi-quantitative NEGATIVE NEGATIVE Urine glucose detection by automated test strip NEGATIVE NEGATIVE Erythrocytes detection in urine sediment by light microscopy NEGATIVE NEGATIVE Urine ketones detection by automated test strip NEGATIVE NEGATIVE Urine nitrite detection by test strip NEGATIVE NEGATIVE Urine total bilirubin detection by test strip NEGATIVE NEGATIVE Urine urobilinogen measurement by automated test strip (mass/volume) NORMAL NORMAL Urine leukocyte esterase detection by dipstick NEGATIVE NEGATIVE Automated urine sediment erythrocyte count by microscopy (number/high power field) NONE NRG Automated urine sediment leukocyte count by microscopy (number/high power field ) NONE NRG Bacteria detection in urine sediment by light microscopy NEGATIVE NRG Squamous epithelial cells detection in urine sediment by light microscopy 5-10 NRG Crystals detection in urine sediment by light microscopy NONE NRG Casts detection in urine sediment by light microscopy PRESENT NRG Mucus detection in urine sediment by light microscopy NEGATIVE NRG Complete urinalysis with reflex to culture NO NRG Hyaline casts detection in urine sediment by light microscopy RARE NRG Encounters ACCT No. Visit Date/Time Discharge Status Pt. Type Provider Facility Loc./Unit Complaint [id number] 06/21/2017 11:39:00 06/21/2017 23:59:59 CLS Outpatient TAYLOR PAUL MD [facility] RAD LUMP LEFT UPPER ARM [id number] 03/06/2017 08:52:00 03/06/2017 23:59:59 CLS Outpatient EMILIANO MCCONNELL MD [facility] RAD SCREENING [id number] 05/08/2016 10:29:00 05/08/2016 11:57:00 DIS Outpatient Sandi ALATORRE MD [facility] CATH SYNCOPE [id number] 05/03/2016 08:39:00 05/03/2016 11:28:00 DIS Emergency SEVERIANO MALDONADO MD [facility] ER RIGHT SIDE PAIN [id number] 04/27/2016 10:59:00 04/27/2016 19:00:00 DIS Outpatient LEE COBIAN MD [facility] SDC DYSKENESIA;CPP [id number] 04/20/2016 09:02:00 04/20/2016 09:30:00 DIS Outpatient LEE COBIAN MD [facility] PREOP DYSKENESIA;CPP [id number] 03/29/2016 09:56:00 03/29/2016 23:59:59 CLS Outpatient EMILIANO MCCONNELL MD [facility] CARD BILIARY COLIC [id number] 03/07/2016 13:50:00 03/07/2016 23:59:59 CLS Outpatient LOUIS LEMOS MD [facility] CARD SYNCOPE,HTN,CAD [id number] 03/06/2016 07:32:00 03/06/2016 23:59:59 CLS Outpatient EMILIANO MCCONNELL MD [facility] RAD BILIARY COLIC, SCREENING [id number] 01/28/2016 09:37:00 01/28/2016 12:50:00 DIS Emergency ROBERT IGNACIO, GONZALO Quinones [facility] ER DIZZINESS/HEAT EXPOSURE [id number] 11/29/2015 07:21:00 11/29/2015 23:59:59 CLS Outpatient LOUIS LEMOS MD [facility] CARD CHEST PAIN SYNDROME, SYNCOPE,SOB,HTN [id number] 11/20/2015 13:40:00 11/22/2015 14:58:00 DIS Inpatient CULLEN IGNACIO, JOSELIN Junior [facility] 4TH ACUTE DYSPHORIC EPISODE [id number] 04/20/2015 15:07:00 04/20/2015 23:59:59 CLS Outpatient ASTRID IGNACIO, SARAH Marina [facility] RAD BLURRY VISION, NECK PAIN, DSYPHAGIA [id number] 02/11/2015 14:19:00 02/11/2015 23:59:59 CLS Outpatient EMILIANO MCCONNELL MD [facility] RAD SCREENING [id number] 02/09/2014 13:06:00 02/09/2014 23:59:59 CLS Outpatient EMILIANO MCCONNELL MD [facility] RAD ABNORMAL MAMMO [id number] 02/04/2014 09:59:00 02/04/2014 23:59:59 CLS Outpatient EMILIANO MCCONNELL MD [facility] RAD THYROID GOITER [id number] 02/02/2014 15:02:00 02/02/2014 23:59:59 CLS Outpatient EMILIANO MCCONNELL MD [facility] RAD SCREENING [id number] 01/29/2014 07:27:00 01/29/2014 23:59:59 CLS Outpatient EMILIANO MCCONNELL MD [facility] LAB SCREENING [id number] 01/14/2013 13:16:00 01/14/2013 23:59:59 CLS Outpatient EMILIANO MCCONNELL MD [facility] RAD SCREENING [id number] 09/09/2017 08:45:00 PEN Preadervin PAUL MD, TAYLOR Junior [facility] ENDO DYSPHAGIA/EPIGASTRIC PAIN/GERD CHRONIC [id number] 01/10/2010 11:47:00 Document Registration
[2017-09-05] MEDS ORDERED: NS IV 1000 ML 1,000 ML IV SCH ×4 (13:54→16:15)
[2017-09-05] MEDS ORDERED: NS IV 1000 ML 1,000 ML ONE (13:55)
[2017-09-05] MEDS ORDERED: LIDOCAINE 1% INJ 50 ML (XYLOCAINE) VIAL ONE (13:55)
[2017-09-05] MEDS ORDERED: HEParin (CATH LAB) 2,000 ML IV ONE (13:56)
[2017-09-05 14:10] LABS: HEMOGLOBIN 14.7 G/DL (11.5-16.0); RED BLOOD COUNT 4.9 10^6/uL (4.35-5.85); RED CELL DISTRIBUTION WIDTH 13.8 % (10.0-14.5); WHITE BLOOD COUNT 14.8 10^3/uL (4.3-11.0)
--- NOTE | 2017-09-05 14:17 | Diagnostic Imaging Report ---
INDICATION: Chest pain, hypertension, and palpitations. TIME OF EXAM: 2:04 p.m. COMPARISON: Correlation is made with prior study from 01/28/2016. FINDINGS: The heart size is stable. The lungs are clear. The pulmonary vascularity is normal. No infiltrate is detected. No effusion or pneumothorax is seen. Electronic device lies adjacent to the left heart border. IMPRESSION: No acute abnormality is detected. Dictated by: Dictated on workstation # [id number]
[2017-09-05 14:28] LABS: ALANINE AMINOTRANSFERASE 21 U/L (0-55); ALBUMIN 4.3 GM/DL (3.2-4.5); ALKALINE PHOSPHATASE 64 U/L (40-136); BILIRUBIN,TOTAL 0.4 MG/DL (0.1-1.0); BUN/CREATININE RATIO 15; CALCIUM 9.6 MG/DL (8.5-10.1); CARBON DIOXIDE 22 MMOL/L (21-32); CHLORIDE 102 MMOL/L (98-107); CREATININE SERUM 0.92 MG/DL (0.60-1.30); GFR ESTIMATED > 60; GLUCOSE 152 MG/DL (70-105); POTASSIUM 3.6 MMOL/L (3.6-5.0); SODIUM 138 MMOL/L (135-145); TOTAL PROTEIN 7.4 GM/DL (6.4-8.2)
[2017-09-05] MEDS ORDERED: PANT40SU PO (14:31)
[2017-09-05] MEDS ORDERED: MAGN500C15 PO (14:31)
[2017-09-05] MEDS ORDERED: AMLO2.5T PO (14:31)
[2017-09-05 14:49] LABS: BILIRUBIN,URINE NEGATIVE (NEGATIVE); CLARITY,URINE CLEAR; COLOR,URINE YELLOW; GLUCOSE, URINE (UA) NEGATIVE (NEGATIVE); KETONES,URINE NEGATIVE (NEGATIVE); LEUKOCYTE ESTERASE ,URINE NEGATIVE (NEGATIVE); NITRITE,URINE NEGATIVE (NEGATIVE); PH,URINE 5 (5-9); PROTEIN,URINE NEGATIVE (NEGATIVE); UROBILINOGEN,URINE NORMAL (NORMAL)
[2017-09-05] MEDS ORDERED: VERAPAMIL 5 MG/2 ML (CALAN) VIAL IV ONE (14:49)
[2017-09-05] MEDS ORDERED: diphenhydrAMINE 50 MG/ML INJ (BENADRYL) ONE (14:49)
[2017-09-05] MEDS ORDERED: MIDAZOLAM 5 MG/5 ML (VERSED) VIAL ONE (14:49)
[2017-09-05] MEDS ORDERED: HEParin 1000 UNIT/ML (10ML VIAL) FOR BOLUS ONE (14:50)
[2017-09-05] MEDS ORDERED: methylPREDNISolone 125 MG (Solu-MEDROL) VIAL ONE (14:50)
[2017-09-05 14:58] LABS: BACTERIA,URINE FEW /HPF; WBC,URINE 0-2 /HPF
[2017-09-05] MEDS ORDERED: NITRO DRIP 25000 MCG/D5W 250 ML IV ONE (15:14)
--- NOTE | 2017-09-05 15:49 | Discharge Inst-Post CATH ---
Discharge Inst-CATH Post Cardiac Cath D/C Inst Follow Up/Plan Appointment with Dr. Fiore's office in 2-4 weeks CARDIAC CATH DISCHARGE INSTRUCTIONS *Hold Metformin for 48 hours post heart cath. ACTIVITY * Go Home directly and rest. * Limit activity of the leg (or wrist if it was used) for 7 days including aerobics, swimming, jogging, bicycling, etc. * Restrict stair-climbing for 7 days if possible, if not, climb up with your non -cath leg, then bring together on the same step. * Avoid lifting, pushing, pulling or excessive movement of the affected extremity for 7 days. * Customary sexual activity may be resumed after 2 days-use caution not to use a position that strains or causes pain to the affected extremity. * No driving for 24 hours. * NO SMOKING. * Avoid straining for bowel movements for 7 days. * Gentle walking on level ground is allowed. * Returning to work will depend on the type of procedure and the results. Your doctor will discuss this with you. CALL YOUR DOCTOR FOR ANY OF THE FOLLOWING: *If bleeding from the puncture site occurs- Apply gentle pressure to site with clean cloth and call your doctor or EMS. * If a knot or lump forms under the skin, increases in size, or causes pain. * If bruising appears to be worsening or moving further down your leg instead of disappearing. * Temperature above 101 F. CARE OF YOUR GROIN INCISION; * Bruising or purple discoloration of the skin near the puncture site is common. * You may shower only, no bathtub bathing for 5 days. Be careful to avoid slipping as your leg may feel stiff. * If a closure device was used on your femoral artery, please see the attached guide regarding care of the device and your leg. * REMOVE the dressing from your groin the next day after your procedure in the shower. CARE OF YOUR WRIST INCISION; * Bruising or purple discoloration of the skin near the puncture site is common. * You may shower. * DO NOT submerge wrist. * Remove dressing in 24 hours. LOUIS FIORE MD Sep 05, 2017 15:49
--- NOTE | 2017-09-05 15:50 | Cardiac Procedure Note-CS/ASA ---
Pre-Procedure Note Pre-Op Procedure Note H&P Reviewed The H&P was reviewed, patient examined and no changes noted. Date H&P Reviewed: Sep 05, 2017 Time H&P Reviewed: 15:00 Conscious Sedation Pre-Proced Time Reviewed: 15:00 ASA Class: 3 Airway Mallampati Classification: ([place] appropriate class) I. II. III, IV Lungs Heart ASA score ASA 1: a normal healthy patient ASA 2: a patient with a mild systemic disease (mid diabetes, controlled hypertension, obesity x ASA 3: a patient with a severe systemic disease that limits activity (angina , COPD, prior Myocardial infarction) ASA 4: a patient with an incapacitating disease that is a constant threat to life (CHF, renal failure) ASA 5: a moribund patient not expected to survive 24 hrs. (ruptured aneurysm) ASA 6: a declared brain patient whose organs are being harvested. For emergent operations, add the letter E after the classification Grade 3 Sedation Plan: Analgesia, Amnesia, Plan communicated to team members, Discussed options with patient/fam, Discussed risks with patient/fam Note The patient is an appropriate candidate to undergo the planned procedure, sedation, and anesthesia. The patient immediately re-assessed prior to indication. LOUIS LEMOS MD Sep 05, 2017 15:50
--- NOTE | 2017-09-05 15:56 | Cardiac Cath Report ---
Cardiac Cath Report Physician (s)/Blast Furnace Tender (s) Physician LOUIS LEMOS MD Pre-Procedure Diagnosis Pre-Procedure Diagnosis: Chest pain, coronary artery disease Post-Procedure Note Procedure Start Date: Sep 05, 2017 Name of Procedure: Left heart catheterization Aortic root angiogram Findings/Procedure Note PROCEDURE NOTE: 46 years old lady with history of syncope, paroxysmal atrial tachycardia, started to have recurrent chest pain, described it as dull achiness in the retrosternal area associated with radiation to the left shoulder and left side of her neck and jaw, has been having increasing dyspnea on exertion, was fairly uncomfortable when she was seen in the office, EKG did not show any acute abnormality. Decided to proceed with cardiac catheterization due to her significant presentation. After explaining the procedure to the patient, all pros and cons were explained, all questions were answered. The patient signed the consent and then she was placed on the cardiac catheterization laboratory. The patient was placed on the cardiac catheterization laboratory. Groin and wrist were prepped SL fashion local anesthesia was used. Sheath placed in the right radial artery. Alejo catheter was used to access the coronary system Pigtail was used to access the left ventricular cavity. Left ventriculogram was done Aortic root angiogram was done At the end of the procedure the sheath was removed. Closure device vascular band FINDINGS: Hemodynamics LV 115/12, end-diastolic pressure of 12 Aorta 119/80 mean of 100 ANATOMY: Left Main is free of obstructive disease Left Anterior Descending is tortuous with slow flow, no significant obstructive disease Left Circumflex is free of obstructive disease Right Coronory Artery is tortuous with no significant disease LV Gram was done in the right anterior oblique position, left ventricular is normal, normal contractility, estimated ejection fraction 60 percent Aorta evaluation was done with aortic root angiogram, the aortic valve appeared to be normal, aortic root, ascending aorta arch and descending aorta appeared to be normal in size. No dissection or aneurysm was seen CONCLUSION: 1. Mild tortuosity in the LAD with slow flow due to small vessel disease otherwise no significant obstructive disease 2. Dominant right coronary system with nonobstructive disease 3. Normal left ventricular size and systolic function estimated ejection fraction 60 percent 4. Normal thoracic aorta and aortic root DISCUSSION AND RECOMMENDATION: Chest pain is unlikely to be cardiac in nature. Anesthesia Type: Conscious Sedation Estimated blood loss (mL): 10 ml Contrast Amount: 46 ml Total Radiation Dose: 366 mGy Post-Procedure Diagnosis Post-operative diagnosis: Chest pain nonspecific etiology Coronary artery disease Syncope Paroxysmal atrial tachycardia LOUIS LEMOS MD Sep 05, 2017 15:56
[2017-09-05] MEDS ORDERED: NS 100 ML (IVPB) BAG IV ONE (17:30)
[2017-09-05] MEDS ORDERED: IOHEXOL 350 MG/ML 100 ML (OMNIPAQUE 350) VIAL IV ONE (17:30)
--- NOTE | 2017-09-05 18:18 | Diagnostic Imaging Report ---
PROCEDURE: CT angiography of the chest with and without contrast. TECHNIQUE: Noncontrast CT of the chest was performed. Subsequently, after intravenous administration of contrast, thin section axial CT angiography of the chest was performed. MIP reconstructions were made. INDICATION: Elevated d-dimer, chest pain, recent heart catheterization. Patient was premedicated with Benadryl and Solu-Medrol. COMPARISON STUDY: CT of the abdomen from May 03, 2016. FINDINGS: No pulmonary emboli are present. There is no aortic dissection or aneurysm. The heart size is normal. No arteriosclerotic disease is seen. There are no pericardial or pleural effusions. No abnormal adenopathy is seen. Visualized portions of the abdomen demonstrate a small left renal calculi on the most inferior scan. The gallbladder is absent. Lung windows demonstrate the lungs to be essentially clear. Minimal dependent atelectasis is present in the lung bases. The osseous structures appear normal. IMPRESSION: There is mild bibasilar atelectasis. Small left renal calculi is present. No acute findings are seen. Dictated by: Dictated on workstation # [id number]
[2017-09-05] MEDS ORDERED: oxyCODONE/APAP 5/325MG (PERCOCET 5) TABLET PO NR (18:25)
[2017-09-06] MEDS ORDERED: LACT1CAP62 PO (11:40)
== END 2017-09-05 18:50 | disposition home or self-care (01) ==
LOC: CATH 13:40 → ICU 16:05 → CATH 18:50
PROVIDERS: ATTEND Internal Medicine Cardiovascular Disease
DX: R07.89 Other chest pain (principal); I25.10 Atherosclerotic heart disease of native coronary artery without angina pectoris; I47.1 Supraventricular tachycardia; R55 Syncope and collapse; I10 Essential (primary) hypertension; I34.0 Nonrheumatic mitral (valve) insufficiency; E78.5 Hyperlipidemia, unspecified; K21.9 Gastro-esophageal reflux disease without esophagitis; E66.9 Obesity, unspecified; Z68.32 Body mass index [BMI] 32.0-32.9, adult; Z82.49 Family history of ischemic heart disease and other diseases of the circulatory system
CPT/HCPCS: 36415; 71045; 71275; 80053; 81000; 84484; 85027; 85379; 85610; 85652; 85730; 87081

== ENCOUNTER 2017-09-06 11:30 | Outpatient (CLI) | payer OTHER ==
[~2017-09-06] VITALS: Ht 172.7 cm; Wt 97.5 kg
[~2017-09-06 11:30] MED LIST changes: +AMLO2.5T PO; +MAGN500C15 PO; +PANT40SU PO
[2017-09-06] MEDS ORDERED: LACT1CAP62 PO (11:40)
== END 2017-09-06 13:23 ==
LOC: PREOP 11:30
PROVIDERS: ATTEND Surgery
DX: Z01.818 Encounter for other preprocedural examination (principal); R13.10 Dysphagia, unspecified; R10.13 Epigastric pain; K21.9 Gastro-esophageal reflux disease without esophagitis
CPT/HCPCS: 93458; 93567

== ENCOUNTER 2017-09-09 07:53 | Day surgery (SDC) | payer OTHER ==
[~2017-09-09] VITALS: Ht 172.7 cm; Wt 97.5 kg
[~2017-09-09 07:53] MED LIST changes: +LACT1CAP62 PO
--- OUTSIDE RECORDS SUMMARY | 2017-09-09 08:00 | XMS REPORT | Continuity of Care Document ---
Author Author [facility] Organization [facility] Address Unknown Phone Unavailable Allergies Active Description Code Type Severity Reaction Onset Reported/Identified Relationship to Patient Clinical Status Yes No Known Drug Allergies [id number] Drug Allergy Unknown N/A 09/06/2017 Medications There is no data. 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 05/22/2016 Sandi ALATORRE MD Ot R55 SYNCOPE AND COLLAPSE 05/22/2016 Sandi ALATORRE MD Ot Z79.899 OTHER [facility] (CURRENT) DRUG THERAPY 05/24/2016 Sandi ALATORRE MD NIDIA Ot 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 05/24/2016 Sandi ALATORRE MD NIDIA Ot R55 SYNCOPE AND COLLAPSE 05/24/2016 Sandi ALATORRE MD Ot Z79.899 OTHER [facility]CI (CURRENT) DRUG THERAPY 05/24/2016 Sandi ALATORRE MD Ot 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.] MD Ot I25.10 ATHSCL HEART DISEASE OF [place] CORONARY 06/13/2017 LOUIS LEMOS MD Ot R07.89 [...] MD Ot I25.10 ATHSCL HEART DISEASE OF [place] CORONARY 06/13/2017 LOUIS LEMOS MD Ot R07.89 [...] MD Ot I25.10 ATHSCL HEART DISEASE OF [place] CORONARY 06/18/2017 LOUIS LEMOS MD Ot R07.89 [...] MD Ot I25.10 ATHSCL HEART DISEASE OF [place] CORONARY 06/19/2017 LOUIS LEMOS MD Ot R07.89 [...] MD Ot I25.10 ATHSCL HEART DISEASE OF [place] CORONARY 07/10/2017 LOUIS LEMOS MD Ot R07.89 [...] MD Ot I25.10 ATHSCL HEART DISEASE OF [place] CORONARY 08/05/2017 LOUIS LEMOS MD Ot R07.89 OTHER CHEST PAIN 08/05/2017 LOUIS LEMOS MD Ot R55 SYNCOPE AND COLLAPSE 08/05/2017 EMILIANO MCCONNELL MD, Ot 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 08/05/2017 EMILIANO MCCONNELL MD, Ot 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 08/05/2017 EMILIANO MCCONNELL MD, Ot Z12.31 ENCNTR SCREEN MAMMOGRAM FOR MALIGNANT NE 08/05/2017 HUMBERTO IGNACIO, TAYLOR Junior Ot R22.32 LOCALIZED SWELLING, MASS AND LUMP, LEFT 09/05/2017 LOUIS LEMOS MD Ot E66.9 OBESITY, UNSPECIFIED 09/05/2017 LOUIS LEMOS MD Ot E78.5 HYPERLIPIDEMIA, UNSPECIFIED 09/05/2017 LOUIS LEMOS MD Ot I10 ESSENTIAL (PRIMARY) HYPERTENSION 09/05/2017 LOUIS LEMOS MD Ot I25.10 ATHSCL HEART DISEASE OF [place] CORONARY 09/05/2017 LOUIS LEMOS MD Ot I34.0 NONRHEUMATIC MITRAL (VALVE) INSUFFICIENC 09/05/2017 LOUIS LEMOS MD Ot I47.1 SUPRAVENTRICULAR TACHYCARDIA 09/05/2017 LOUIS LEMOS MD Ot K21.9 GASTRO-ESOPHAGEAL REFLUX DISEASE WITHOUT 09/05/2017 LOUIS LEMOS MD Ot R07.89 OTHER CHEST PAIN 09/05/2017 LOUIS LEMOS MD Ot R55 SYNCOPE AND COLLAPSE 09/05/2017 LOUIS LEMOS MD Ot Z68.32 BODY MASS INDEX (BMI) 32.0-32.9, ADULT 09/05/2017 LOUIS LEMOS MD, Ot Z82.49 FAMILY HX OF ISCHEM HEART DIS AND OTH DI 09/05/2017 EMILIANO MCCONNELL MD, Ot V76.12 OTH SCREEN MAMMO-MALIGN NEOPLASM OF KIP 09/05/2017 EMILIANO MCCONNELL MD Ot 240.9 GOITER NOS 09/05/2017 EMILIANO MCCONNELL MD, Ot V76.12 OTH SCREEN MAMMO-MALIGN NEOPLASM OF KIP 09/05/2017 EMILIANO MCCONNELL MD, Ot 240.9 GOITER NOS 09/05/2017 EMILIANO MCCONNELL MD Ot 246.2 CYST OF THYROID 09/05/2017 EMILIANO MCCONNELL MD, Ot V76.12 OTH SCREEN MAMMO-MALIGN NEOPLASM OF KIP 09/05/2017 EMILIANO MCCONNELL MD Ot V82.9 SCREEN FOR CONDITION NOS 09/05/2017 EMILIANO MCCONNELL MD Ot 793.80 UNSPEC ABNORMAL MAMMOGRAM 09/05/2017 EMILIANO MCCONNELL MD, Ot V76.12 OTH SCREEN MAMMO-MALIGN NEOPLASM OF KIP 09/05/2017 SARAH RESENDIZ MD Ot H53.8 OTHER VISUAL DISTURBANCES 09/05/2017 SARAH RESENDIZ MD Ot M54.2 CERVICALGIA 09/05/2017 SARAH RESENDIZ MD Ot R13.10 DYSPHAGIA, UNSPECIFIED 09/05/2017 SARAH RESENDIZ MD Ot R51 HEADACHE 09/05/2017 LOUIS LEMOS MD Ot R06.02 SHORTNESS OF BREATH 09/05/2017 LOUIS LEMOS MD Ot R07.89 OTHER CHEST PAIN 09/05/2017 LOUIS LEMOS MD Ot R55 SYNCOPE AND COLLAPSE 09/05/2017 LOUIS LEMOS MD Ot I10 ESSENTIAL (PRIMARY) HYPERTENSION 09/05/2017 LOUIS LEMOS MD Ot I25.10 ATHSCL HEART DISEASE OF [place] CORONARY 09/05/2017 LOUIS LEMOS MD Ot R07.89 OTHER CHEST PAIN 09/05/2017 LOUIS LEMOS MD Ot R55 SYNCOPE AND COLLAPSE 09/05/2017 EMILIANO MCCONNELL MD Ot 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 09/05/2017 EMILIANO MCCONNELL MD, Ot 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 09/05/2017 EMILIANO MCCONNELL MD, Ot Z12.31 ENCNTR SCREEN MAMMOGRAM FOR MALIGNANT NE 09/05/2017 HUMBERTO IGNACIO, TAYLOR Junior Ot R22.32 LOCALIZED SWELLING, MASS AND LUMP, LEFT 09/06/2017 LOUIS LEMOS MD Ot E66.9 OBESITY, UNSPECIFIED 09/06/2017 LOUIS LEMOS MD Ot E78.5 HYPERLIPIDEMIA, UNSPECIFIED 09/06/2017 LOUIS LEMOS MD, Ot I10 ESSENTIAL (PRIMARY) HYPERTENSION 09/06/2017 LOUIS LEMOS MD, Ot I25.10 ATHSCL HEART DISEASE OF [place] CORONARY 09/06/2017 LOUIS LEMOS MD, Ot I34.0 NONRHEUMATIC MITRAL (VALVE) INSUFFICIENC 09/06/2017 LOUIS LEMOS MD, Ot I47.1 SUPRAVENTRICULAR TACHYCARDIA 09/06/2017 LOUIS LEMOS MD, Ot K21.9 GASTRO-ESOPHAGEAL REFLUX DISEASE WITHOUT 09/06/2017 LOUIS LEMOS MD, Ot R07.89 OTHER CHEST PAIN 09/06/2017 LOUIS LEMOS MD, Ot R55 SYNCOPE AND COLLAPSE 09/06/2017 LOUIS LEMOS MD, Ot Z68.32 BODY MASS INDEX (BMI) 32.0-32.9, ADULT 09/06/2017 LOUIS LEMOS MD, Ot Z82.49 FAMILY HX OF ISCHEM HEART DIS AND OTH DI Procedures There is no data. Results Test [...] urine sediment by light microscopy RARE NRG Complete urinalysis with reflex to culture - 09/05/17 14:00 Urine color determination YELLOW NRG Urine clarity determination CLEAR NRG Urine pH measurement by test strip 5 5-9 Specific gravity of urine by test strip 1.025 1.016- 1.022 Urine protein assay by test [...] count by microscopy (number/high power field ) [HPF] NRG Bacteria detection in urine sediment by light microscopy FEW NRG Squamous epithelial cells detection in urine sediment by light microscopy 5-10 NRG Crystals detection in urine sediment by light microscopy NONE NRG Casts detection in urine sediment by light microscopy NONE NRG Mucus detection in urine sediment by light microscopy MODERATE NRG Complete urinalysis with reflex to culture NO NRG Automated blood complete blood count (hemogram) panel - 09/05/17 14:02 Blood leukocytes automated count (number/volume) 14.8 10*3/uL 4.3-11.0 Blood erythrocytes automated count (number/volume) 4.90 10*6/uL 4.35-5.85 Venous blood hemoglobin measurement (mass/volume) 14.7 g/dL 11.5-16.0 Blood hematocrit (volume fraction) 44 % 35-52 Automated erythrocyte mean corpuscular volume 90 [foz_us] 80-99 Automated erythrocyte mean corpuscular hemoglobin (mass per erythrocyte) 30 pg 25-34 Automated erythrocyte mean corpuscular hemoglobin concentration measurement ( mass/volume) 33 g/dL 32-36 Automated erythrocyte distribution width ratio 13.8 % 10.0-14.5 Automated blood platelet count (count/volume) 307 10*3/uL 130-400 Automated blood platelet mean volume measurement 10.0 [foz_us] 7.4-10.4 PT panel in platelet poor plasma by coagulation assay - 09/05/17 14:02 Prothrombin time (PT) in platelet poor plasma by coagulation assay 13.0 s 12.2-14.7 INR in platelet poor plasma or blood by coagulation assay 1.0 0.8-1.4 Activated partial thromboplastin time (aPTT) in platelet poor plasma bycoagulation assay - 09/05/17 14:02 Activated partial thromboplastin time (aPTT) in platelet poor plasma bycoagulation assay 25 s 24-35 Comprehensive metabolic panel - 09/05/17 14:02 Serum or plasma sodium measurement (moles/volume) 138 mmol/L 135-145 Serum or plasma potassium measurement (moles/volume) 3.6 mmol/L 3.6-5.0 Serum or plasma chloride measurement (moles/volume) 102 mmol/L 98-107 Carbon dioxide 22 mmol/L 21-32 Serum or plasma anion gap determination (moles/volume) 14 mmol/L 5-14 Serum or plasma urea nitrogen measurement (mass/volume) 14 mg/dL 7-18 Serum or plasma creatinine measurement (mass/volume) 0.92 mg/dL 0.60-1.30 Serum or plasma urea nitrogen/creatinine mass ratio 15 NRG Serum or plasma creatinine measurement with calculation of estimated glomerular filtration rate > NRG Serum or plasma glucose measurement (mass/volume) 152 mg/dL 70-105 Serum or plasma calcium measurement (mass/volume) 9.6 mg/dL 8.5-10.1 Serum or plasma total bilirubin measurement (mass/volume) 0.4 mg/dL 0.1-1.0 Serum or plasma alkaline phosphatase measurement (enzymatic activity/volume) 64 U/L 40-136 Serum or plasma aspartate aminotransferase measurement (enzymatic activity/ volume) 10 U/L 5-34 Serum or plasma alanine aminotransferase measurement (enzymatic activity/volume ) 21 U/L 0-55 Serum or plasma protein measurement (mass/volume) 7.4 g/dL 6.4-8.2 Serum or plasma albumin measurement (mass/volume) 4.3 g/dL 3.2-4.5 Fibrin D-dimer FEU measurement in platelet poor plasma (mass/volume) - 14:02 Fibrin D-dimer FEU measurement in platelet poor plasma (mass/volume) 0.76 ug/mL 0.00-0.49 Serum or plasma troponin i.cardiac measurement (mass/volume) - 09/05/17 14:02 Serum or plasma troponin i.cardiac measurement (mass/volume) < ng/ mL <0.30 Erythrocyte sedimentation rate by westergren method - 09/05/17 14:02 Erythrocyte sedimentation rate by westergren method 5 mm 0-20 Methicillin resistant Staphylococcus aureus (MRSA) screening culture - 14:02 Methicillin resistant Staphylococcus aureus (MRSA) screening culture NEG NRG Encounters ACCT No. Visit Date/Time Discharge Status Pt. Type Provider Facility Loc./Unit Complaint [id number] 09/06/2017 11:30:00 09/06/2017 13:23:00 DIS Outpatient TAYLOR PAUL MD [facility] PREOP EGD POSS DILATION [id number] 09/05/2017 13:40:00 09/05/2017 18:50:00 DIS Outpatient LOUIS LEMOS MD [facility] CATH CP,HTN,PALP [id number] 06/21/2017 11:39:00 06/21/2017 23:59:59 CLS Outpatient TAYLOR PAUL MD [facility] RAD LUMP LEFT UPPER ARM [id number] 03/06/2017 08:52:00 03/06/2017 23:59:59 CLS Outpatient EMILIANO MCCONNELL MD [facility] RAD SCREENING [id number] 05/08/2016 10:29:00 05/08/2016 11:57:00 DIS Outpatient CELI IGNACIO, Sandi JACOB [facility] CATH SYNCOPE [id number] 05/03/2016 08:39:00 05/03/2016 11:28:00 DIS Emergency SEVERIANO MALDONADO MD [facility] ER RIGHT SIDE PAIN [id number] 04/27/2016 10:59:00 04/27/2016 19:00:00 DIS Outpatient LEE COBIAN MD [facility] SDC DYSKENESIA;CPP [id number] 04/20/2016 09:02:00 04/20/2016 09:30:00 DIS Outpatient LEE COBIAN MD [facility] PREOP DYSKENESIA;CPP [id number] 03/29/2016 09:56:00 03/29/2016 23:59:59 CLS Outpatient EMILIANO MCCONNELL MD [facility] CARD BILIARY COLIC [id number] 03/07/2016 13:50:00 03/07/2016 23:59:59 CLS Outpatient LOUIS LEMOS MD [facility] CARD SYNCOPE,HTN,CAD [id number] 03/06/2016 07:32:00 03/06/2016 23:59:59 CLS Outpatient EMILIANO MCCONNELL MD [facility] RAD BILIARY COLIC, SCREENING [id number] 01/28/2016 09:37:00 01/28/2016 12:50:00 DIS Emergency GONZALO JONES MD [facility] ER DIZZINESS/HEAT EXPOSURE [id number] 11/29/2015 07:21:00 11/29/2015 23:59:59 CLS Outpatient LOUIS LEMOS MD [facility] CARD CHEST PAIN SYNDROME, SYNCOPE,SOB,HTN [id number] 11/20/2015 13:40:00 11/22/2015 14:58:00 DIS Inpatient CULLEN IGNACIO, JOSELIN Junior [facility] 4TH ACUTE DYSPHORIC EPISODE [id number] 04/20/2015 15:07:00 04/20/2015 23:59:59 CLS Outpatient SARAH RESENDIZ MD [facility] RAD BLURRY VISION, NECK PAIN, DSYPHAGIA [id number] 02/11/2015 14:19:00 02/11/2015 23:59:59 CLS Outpatient EMILIANO MCCONNELL MD [facility] RAD SCREENING [id number] 02/09/2014 13:06:00 02/09/2014 23:59:59 CLS Outpatient EMILIANO MCCONNELL MD [facility] RAD ABNORMAL MAMMO [id number] 02/04/2014 09:59:00 02/04/2014 23:59:59 CLS Outpatient EMILIANO MCCONNELL MD [facility] RAD THYROID GOITER [id number] 02/02/2014 15:02:00 02/02/2014 23:59:59 CLS Outpatient EMILIANO MCCONNELL MD [facility] RAD SCREENING [id number] 01/29/2014 07:27:00 01/29/2014 23:59:59 CLS Outpatient EMILIANO MCCONNELL MD [facility] LAB SCREENING [id number] 01/14/2013 13:16:00 01/14/2013 23:59:59 CLS Outpatient EMILIANO MCCONNELL MD [facility] RAD SCREENING [id number] 09/09/2017 08:45:00 PEN Hector PAUL MD, TAYLOR Junior [facility] ENDO DYSPHAGIA/EPIGASTRIC PAIN/GERD CHRONIC [id number] 01/10/2010 11:47:00 Document Registration
[2017-09-09 08:10] VITALS: BP 146/89
[2017-09-09] MEDS ORDERED: NS IV 500 ML 500 ML ONE (08:12)
[2017-09-09] MEDS ORDERED: HURRICAINE EXT TUBE (BENZOCAINE) XX PRN (08:15)
[2017-09-09] MEDS ORDERED: NS IV 500 ML 500 ML IV PRN (08:15)
--- NOTE | 2017-09-09 08:57 | Conscious Sedation/ASA ---
Conscious Sedation Pre-Proced Time Reviewed: 08:57 ASA Class: 2 Airway Mallampati Classification: ([place] appropriate class) I. II. III, IV Lungs Heart ASA score ASA 1: a normal healthy patient ASA 2: a patient with a mild systemic disease (mid diabetes, controlled hypertension, obesity ASA 3: a patient with a severe systemic disease that limits activity (angina , COPD, prior Myocardial infarction) ASA 4: a patient with an incapacitating disease that is a constant threat to life (CHF, renal failure) ASA 5: a moribund patient not expected to survive 24 hrs. (ruptured aneurysm) ASA 6: a declared brain patient whose organs are being harvested. For emergent operations, add the letter E after the classification Grade 1 Sedation Plan: Discussed options with patient/fam Note The patient is an appropriate candidate to undergo the planned procedure, sedation, and anesthesia. The patient immediately re-assessed prior to indication. TAYLOR PAUL MD Sep 09, 2017 8:57 am
[2017-09-09] MEDS ORDERED: HURRICAINE EXT TUBE (BENZOCAINE) ONE (09:26)
[2017-09-09] MEDS ORDERED: MIDAZOLAM 2 MG/2 ML (VERSED) VIAL ONE ×3 (09:26)
[2017-09-09] MEDS ORDERED: fentaNYL INJECTION 100 MCG/2 ML AMP ONE (09:26)
[2017-09-09] MEDS: fentaNYL INJECTION 100 MCG/2 ML AMP IVP PRN ×2 (09:30→09:33)
[2017-09-09] MEDS: MIDAZOLAM 2 MG/2 ML (VERSED) VIAL IVP PRN ×3 (09:32→09:38)
--- NOTE | 2017-09-09 09:47 | Endo Procedure Record ---
Endo Procedure Report Date of Procedure Last Colonoscopy: Yes (2007) Sep 09, 2017 Surgeon (s) TAYLOR PAUL MD Post Procedure/Op Diagnosis Distal gastric erosions Grade 2 esophagitis Procedure Performed EGD with antral biopsy for H. pylori Description of Procedure Anesthesia Type: Conscious Sedation Specimen(s) collected/removed antral mucosa for H. pylori Description of the Procedure Indication for the procedure: This lady came in for an upper endoscopy to evaluate ongoing substernal and epigastric pain, along with dysphagia. Cardiac catheterization was negative for coronary artery disease. Informed consent was obtained after reviewing the procedure in detail. Description of the procedure: She was placed in left lateral decubitus position and her vital signs were monitored. Conscious sedation was achieved using Versed and fentanyl. The flexible gastroscope was introduced down the esophagus , past the stomach, into the proximal duodenum. Findings: Esophagus: Hiatal hernia with grade 2 esophagitis.No stricture was identified Stomach: A total of 2 shallow erosions were found in diameter. Biopsy for H. pylori was obtained. Duodenum normal She tolerated the procedure well and was taken back to the nursing area in a stable condition. Impression: Epigastric and substernal pain. Esophagitis and gastric erosions. Helicobacter status pending. Copies To: ROBERTA LOYD DO Copies To: LOUIS LEMOS MD, XAVIER M MD Sep 09, 2017 9:47 am
--- NOTE | 2017-09-09 09:48 | Discharge Inst-Simple/Standard ---
Discharge Inst-Standard Discharge Medications New, Converted or Re-Newed RX: Other Patient Instructions/Follow Up Plan of Care/Instructions/FU: Follow-up with Dr. Toure Activity as Tolerated: Yes Discharge Diet: No Restrictions TAYLOR PAUL MD Sep 09, 2017 9:48 am
[2017-09-09 10:30] VITALS: BP 142/89
[2017-09-09 10:59] VITALS: BP 138/82
[2017-09-09 11:10] VITALS: BP 138/82
== END 2017-09-09 11:10 | disposition home or self-care (01) ==
LOC: ENDO 07:53
PROVIDERS: ATTEND Surgery
DX: K21.0 Gastro-esophageal reflux disease with esophagitis (principal); K25.9 Gastric ulcer, unspecified as acute or chronic, without hemorrhage or perforation; K44.9 Diaphragmatic hernia without obstruction or gangrene; I10 Essential (primary) hypertension; Z79.899 Other long term (current) drug therapy

== ENCOUNTER 2017-12-24 16:20 | Outpatient (CLI) | payer OTHER | END 2017-12-24 17:00 | disposition home or self-care (01) | LOC: SLEEP 16:20 | PROVIDERS: ATTEND Surgery | DX: G47.33 Obstructive sleep apnea (adult) (pediatric) (principal) ==

== ENCOUNTER → 2018-02-05 | Outpatient (CLI) | payer OTHER ==
[~2018-02-05] MED LIST changes: +AMLO5TAB2 PO; +APIX2.5T PO; +ESTR-85 PO; +METO-387 PO; +ONDN4T PO; +OXYC-197 PO
[2018-02-05 10:03] LABS: MEAN PLATELET VOLUME 10.6 FL (7.4-10.4); RED BLOOD COUNT 4.61 10^6/uL (4.35-5.85); RED CELL DISTRIBUTION WIDTH 13.8 % (10.0-14.5); WHITE BLOOD COUNT 7.1 10^3/uL (4.3-11.0)
[2018-02-05 10:18] LABS: ALANINE AMINOTRANSFERASE 16 U/L (0-55); ALBUMIN 4.2 GM/DL (3.2-4.5); ALKALINE PHOSPHATASE 53 U/L (40-136); BILIRUBIN,TOTAL 0.5 MG/DL (0.1-1.0); BUN/CREATININE RATIO 16; CALCIUM 9.3 MG/DL (8.5-10.1); CARBON DIOXIDE 25 MMOL/L (21-32); CHLORIDE 110 MMOL/L (98-107); CHOLESTEROL 198 MG/DL (< 200); CREATININE SERUM 0.83 MG/DL (0.60-1.30); GFR ESTIMATED > 60; GLUCOSE 91 MG/DL (70-105); HDL CHOLESTEROL 37 MG/DL (40-60); POTASSIUM 4.3 MMOL/L (3.6-5.0); SODIUM 141 MMOL/L (135-145); TOTAL PROTEIN 6.9 GM/DL (6.4-8.2); TRIGLYCERIDES 145 MG/DL (<150); VLDL CHOLESTEROL 29 MG/DL (5-40)
== END ==
LOC: LAB 09:48
PROVIDERS: ATTEND Obstetrics & Gynecology
DX: Z01.419 Encounter for gynecological examination (general) (routine) without abnormal findings (principal)
CPT/HCPCS: 36415; 80053; 80061; 84443; 85027

== ENCOUNTER 2018-02-18 08:19 | Outpatient (CLI) | payer OTHER ==
[~2018-02-18] VITALS: Ht 172.7 cm; Wt 97.3 kg
[~2018-02-18 08:19] MED LIST changes: -AMLO5TAB2 PO; -APIX2.5T PO; -ESTR-85 PO; -METO-387 PO; -ONDN4T PO; -OXYC-197 PO
[2018-02-18] MEDS ORDERED: APIX2.5T PO (08:32)
[2018-02-18] MEDS ORDERED: AMLO5TAB2 PO (08:32)
[2018-02-18] MEDS ORDERED: ESTR-85 PO (08:32)
[2018-02-18] MEDS ORDERED: METO-387 PO (08:32)
[2018-02-18 08:43] VITALS: BP 142/97
[2018-02-20] MEDS ORDERED: ONDN4T PO (10:58)
[2018-02-20] MEDS ORDERED: OXYC-197 PO (10:58)
== END 2018-02-18 08:58 | disposition home or self-care (01) ==
LOC: PREOP 08:19
PROVIDERS: ATTEND Surgery
DX: Z01.818 Encounter for other preprocedural examination (principal)
CPT/HCPCS: 87081

== ENCOUNTER → 2018-03-17 | Outpatient (CLI) | payer OTHER ==
[~2018-03-17] MED LIST changes: -AMLO2.5T PO; +AMLO2.5T3 PO; +AMLO5TAB7 PO; +APIX2.5T PO; +ESTR-85 PO; +METO-387 PO; +ONDN4T PO; +OXYC1TAB87 PO
--- NOTE | 2018-03-17 17:42 | Diagnostic Imaging Report ---
INDICATION: Routine screening. COMPARISON: Comparison is made with prior mammograms from 03/06/2017 and 03/06/2016. TECHNIQUE: 2D and 3D bilateral screening mammography was performed with computer-aided detection (CAD) system. FINDINGS: Both breasts are heterogeneously dense, limiting the sensitivity of mammography. Cardiac monitoring device in the medial left breast is again noted. The parenchymal pattern is stable. No dominant mass or malignant appearing microcalcifications are seen. The axillae are unremarkable. IMPRESSION: No mammographic features suspicious for malignancy are identified. ACR BI-RADS Category 1: Negative. Result letter will be mailed to the patient. Note: At least 10% of breast cancer is not imaged by mammography. Dictated by: Dictated on workstation # [id number]
== END ==
LOC: RAD 08:07
PROVIDERS: ATTEND Obstetrics & Gynecology
DX: Z12.31 Encounter for screening mammogram for malignant neoplasm of breast (principal)
CPT/HCPCS: 77067

== ENCOUNTER → 2018-05-20 | Outpatient (CLI) | payer OTHER ==
[2018-05-20 08:54] LABS: HEMOGLOBIN 13.1 G/DL (11.5-16.0); MEAN PLATELET VOLUME 11.3 FL (7.4-10.4); RED BLOOD COUNT 4.49 10^6/uL (4.35-5.85); RED CELL DISTRIBUTION WIDTH 15.1 % (10.0-14.5)
[2018-05-20 09:25] LABS: ALANINE AMINOTRANSFERASE 16 U/L (0-55); ALBUMIN 4.3 GM/DL (3.2-4.5); ALKALINE PHOSPHATASE 59 U/L (40-136); BILIRUBIN,TOTAL 0.7 MG/DL (0.1-1.0); BUN/CREATININE RATIO 23; CALCIUM 9.8 MG/DL (8.5-10.1); CARBON DIOXIDE 26 MMOL/L (21-32); CHLORIDE 109 MMOL/L (98-107); CREATININE SERUM 0.79 MG/DL (0.60-1.30); GFR ESTIMATED > 60; GLUCOSE 84 MG/DL (70-105); MAGNESIUM 2.1 MG/DL (1.8-2.4); PHOSPHORUS 2.8 MG/DL (2.3-4.7); POTASSIUM 3.9 MMOL/L (3.6-5.0); SODIUM 144 MMOL/L (135-145); TOTAL PROTEIN 7.2 GM/DL (6.4-8.2)
== END ==
LOC: LAB 08:04
PROVIDERS: ATTEND Nurse Practitioner Family
DX: R53.83 Other fatigue (principal); R25.2 Cramp and spasm
CPT/HCPCS: 36415; 80053; 82306; 82607; 82746; 83735; 84100; 84207; 84252; 84425; 84591; 85027

== ENCOUNTER → 2018-06-17 | Outpatient (CLI) | payer OTHER ==
[2018-06-17 08:28] LABS: ALANINE AMINOTRANSFERASE 17 U/L (0-55); ALBUMIN 4.3 GM/DL (3.2-4.5); ALKALINE PHOSPHATASE 63 U/L (40-136); BILIRUBIN,TOTAL 0.7 MG/DL (0.1-1.0); BUN/CREATININE RATIO 24; CALCIUM 9.7 MG/DL (8.5-10.1); CARBON DIOXIDE 25 MMOL/L (21-32); CHLORIDE 108 MMOL/L (98-107); CHOLESTEROL 140 MG/DL (< 200); CREATININE SERUM 0.82 MG/DL (0.60-1.30); GFR ESTIMATED > 60; GLUCOSE 87 MG/DL (70-105); HDL CHOLESTEROL 36 MG/DL (40-60); SODIUM 142 MMOL/L (135-145); TOTAL PROTEIN 6.9 GM/DL (6.4-8.2); TRIGLYCERIDES 110 MG/DL (<150); VLDL CHOLESTEROL 22 MG/DL (5-40)
== END ==
LOC: LAB 07:47
PROVIDERS: ATTEND Internal Medicine Cardiovascular Disease
DX: I47.1 Supraventricular tachycardia (principal); I25.10 Atherosclerotic heart disease of native coronary artery without angina pectoris; R07.89 Other chest pain; R06.09 Other forms of dyspnea; I10 Essential (primary) hypertension
CPT/HCPCS: 36415; 80053; 80061

== ENCOUNTER → 2018-06-18 | Outpatient (CLI) | payer OTHER ==
[~2018-06-18] MED LIST changes: +IOHEXOL 350 MG/ML 100 ML (OMNIPAQUE 350) VIAL IV ONE; +NS 100 ML (IVPB) BAG IV ONE; +RECEIVED CONTRAST (Hold Metformin) IV SCH
--- NOTE | 2018-06-18 13:37 | Diagnostic Imaging Report ---
PROCEDURE: CT chest with contrast only. TECHNIQUE: Multiple contiguous axial images were obtained through the chest after administration of intravenous contrast. INDICATION: Chest pain. FINDINGS: The previous CTA chest exam of 09/05/2017 noted mild bibasilar atelectasis/infiltrate but failed to show any sign of a pulmonary embolus or of a dissection. On this study, there still no defect within the pulmonary arteries to indicate a pulmonary embolus. The aorta is not abnormally dilated and there is no sign of a dissection. The heart size is within normal limits. There are no coronary artery calcifications noted. The bibasilar atelectasis/infiltrate seen on the prior exam has cleared. The lungs are generally clear and well aerated now. There is no evidence for failure or pneumonia and there is no significant pleural effusion identified. There is no mediastinal or hilar adenopathy. The thyroid gland where visualized is unremarkable. The loop recorder device within the left breast noted previously is again evident. There is no obvious breast mass. The upper abdomen failed to show any sign of an acute abnormality. However in the interval since the prior exam, the patient has undergone a surgical procedure and there are now numerous surgical clips along the lateral aspect of the fundus and body of the stomach. As noted on the prior exam, the gallbladder is surgically absent. Bone windows show no evidence for a fracture or for a destructive lesion. IMPRESSION: 1. The appearance of the chest has improved since the prior exam as both lung bases do seem better aerated. There is no evidence for an acute cardiopulmonary abnormality noted. 2. There is still no evidence for a pulmonary embolus or for a dissection. 3. There has been an interval surgical procedure involving the stomach. Correlation with the patient's surgical history would be recommended. Dictated by: Dictated on workstation # [id number]
== END ==
LOC: RAD 12:17
PROVIDERS: ATTEND Internal Medicine Cardiovascular Disease
DX: I25.10 Atherosclerotic heart disease of native coronary artery without angina pectoris (principal); I10 Essential (primary) hypertension; I47.1 Supraventricular tachycardia; Z95.818 Presence of other cardiac implants and grafts
CPT/HCPCS: 71260

== ENCOUNTER 2018-08-21 07:55 | Outpatient (CLI) | payer OTHER ==
[~2018-08-21] VITALS: Ht 172.7 cm; Wt 69.9 kg
[~2018-08-21 07:55] MED LIST changes: -AMLO2.5T3 PO; +AMLO2.5T4 PO; -AMLO5TAB7 PO; +AMLO5TAB9 PO; -IOHEXOL 350 MG/ML 100 ML (OMNIPAQUE 350) VIAL IV ONE; -NS 100 ML (IVPB) BAG IV ONE; -RECEIVED CONTRAST (Hold Metformin) IV SCH
[2018-08-22] MEDS ORDERED: OXYC1TAB12 PO (10:10)
== END 2018-08-21 08:43 | disposition home or self-care (01) ==
LOC: PREOP 07:55
PROVIDERS: ATTEND Surgery
DX: Z01.818 Encounter for other preprocedural examination (principal)

== ENCOUNTER 2018-08-22 08:33 | Day surgery (SDC) | payer OTHER ==
[~2018-08-22] VITALS: Ht 172.7 cm; Wt 69.9 kg
[2018-08-22 08:45] VITALS: BP 104/76
[2018-08-22] MEDS ORDERED: BUPIVACAINE 0.5% 30 ML (SENSORCAINE) VIAL ONE (08:51)
[2018-08-22] MEDS ORDERED: LIDOCAINE/EPI 1%-1:100,000 (XYLOCAINE) 20ML ONE (08:51)
[2018-08-22] MEDS ORDERED: BACITRACIN OINTMENT 28 GM TUBE ONE (08:52)
[2018-08-22] MEDS ORDERED: LACTATED RINGERS 1,000 ML IV PRN (09:22)
[2018-08-22] MEDS ORDERED: fentaNYL INJECTION 100 MCG/2 ML AMP ONE (09:39)
[2018-08-22] MEDS ORDERED: MIDAZOLAM 2 MG/2 ML (VERSED) VIAL ONE (09:39)
[2018-08-22] MEDS ORDERED: metroNIDAZOLE 500MG/100ML IVPB 100 ML ONE (09:44)
[2018-08-22] MEDS ORDERED: WATER (STERILE) FOR INJECTION 10 ML ONE (09:44)
[2018-08-22] MEDS ORDERED: ceFAZolin INJECTION 1,000 MG ONE (09:44)
[2018-08-22] MEDS ORDERED: DEXAMETHASONE 10 MG/ML (DECADRON) 1 ML VIAL ONE (09:46)
[2018-08-22] MEDS ORDERED: proPOfol 200 MG/20 ML (DIPRIVAN) VIAL IV ONE (09:46)
[2018-08-22] MEDS ORDERED: ONDANSETRON 4 MG/2 ML (SDV) Z0FRAN ONE (09:46)
[2018-08-22] MEDS ORDERED: LIDOCAINE PF 2% 5 ML (XYLOCAINE) VIAL ONE (09:46)
[2018-08-22] MEDS ORDERED: SEVOFLURANE (ULTANE) 15 ML INHAL SOLN ONE ×4 (09:46→10:33)
[2018-08-22] MEDS ORDERED: MEPERIDINE (DEMEROL) INJ 50 MG/ML IVP ONE (10:00)
[2018-08-22] MEDS ORDERED: morphine INJ 10 MG/ML 1ML (SYR OR VIAL) IVP ONE (10:00)
[2018-08-22] MEDS ORDERED: ONDANSETRON 4 MG/2 ML (SDV) Z0FRAN IVP PRN ×2 (10:00→10:15)
[2018-08-22] MEDS ORDERED: fentaNYL INJECTION 100 MCG/2 ML AMP IVP ONE (10:00)
--- NOTE | 2018-08-22 10:08 | Progress Note-Pre Operative ---
Pre-Operative Progress Note H&P Reviewed The H&P was reviewed, patient examined and no changes noted. Date Seen by Provider: Aug 22, 2018 Time Seen by Provider: 09:00 Date H&P Reviewed: Aug 22, 2018 Time H&P Reviewed: 09:00 Pre-Operative Diagnosis: recurrent symptomatic stage 3 ext and int hemorrhoids LEE COBIAN MD Aug 22, 2018 10:08
[2018-08-22] MEDS ORDERED: OXYC1TAB12 PO (10:10)
--- NOTE | 2018-08-22 10:12 | Discharge Inst-Surgical ---
D/C Lap Instructions-MANGO Follow Up Appt in 2 weeks Activity as tolerated No driving for 24 hours No [address] while on pain medications Sitz bath QID and after every bowel movement. High fiber/stool softeners/laxatives scheduled to promote soft stools daily. Regular Diet Symptoms to Report: Fever over 101 degree F, Nausea/Vomiting Infection Signs and Symptoms to report: Increased redness, Foul odor of wound, Increased drainage Bathing instructions: May shower Operative Area Clean/Dry; Keep incision clean/dry If any problems/questions: Contact your physician or go to Emergency Room LEE COBIAN MD Aug 22, 2018 10:12
[2018-08-22] MEDS ORDERED: ceFAZolin INJECTION 1,000 MG in WATER (STERILE) FOR INJECTION 10 ML IV ONE (10:15)
[2018-08-22] MEDS ORDERED: oxyCODONE/APAP 5/325MG (PERCOCET 5) TABLET PO PRN (10:15)
[2018-08-22] MEDS ORDERED: metroNIDAZOLE 500MG/100ML IVPB 100 ML IV ONE (10:15)
[2018-08-22] MEDS ORDERED: ACETAMINOPHEN 325 MG TABLET PO PRN (10:15)
--- NOTE | 2018-08-22 10:53 | Progress Note-Post Operative ---
Post-Operative Progess Note Surgeon (s)/Resource Engineer (s) Surgeon LEE COBIAN MD Resource Engineer: none Pre-Operative Diagnosis recurrent symptomatic stage 3 ext and int hemorrhoids Post-Operative Diagnosis same Procedure & Operative Findings Date of Procedure 08/22/18 Procedure Performed/Findings anal exam under anesthesia. formal martinez closed hemorrhoidectomy single internal and external hemorrhoidal cushion. Anesthesia Type general LMA Estimated Blood Loss Estimated blood loss (mL): minimal Specimens/Packing Specimens Removed int and ext hemorrhoidal cushion. LEE COBIAN MD Aug 22, 2018 10:53
[2018-08-22] MEDS: morphine INJ 10 MG/ML 1ML (SYR OR VIAL) IVP PRN ×2 (11:30→11:32)
[2018-08-22 11:55] VITALS: BP 111/73
--- NOTE | 2018-08-22 12:10 | NUR ---
Pt c/o middle chest pressure. reports it is similar to chondritis pain she has had in the past. denies soa or radiation of pain. ad operations specialist notified. no new orders. 1230 pt reports pain is resolved after repositioning. ad operations specialist notified. 1250 heart rate 45-55. ad operations specialist notified. orders rec'd for ekg. pt denies pain at this time. 1300 ekg reviewed by ad operations specialist. no new orders. ok to discharge home. 1330 dc instructs given. pt advised to go to ER if any concerning symptoms. pt voiced understanding.
[2018-08-22 12:25] VITALS: BP 108/70
[2018-08-22 12:55] VITALS: BP 112/55
--- NOTE | 2018-08-22 13:22 | Anesthesia-General Post-Op ---
General Patient Condition Mental Status/LOC: Same as Preop Cardiovascular: Satisfactory Nausea/Vomiting: Absent Respiratory: Satisfactory Pain: Controlled Complications: Absent Post Op Complications Complications None Follow Up Care/Instructions Patient Instructions None needed. Anesthesia/Patient Condition Patient Condition Patient is doing well, no complaints, stable vital signs, no apparent adverse anesthesia problems. No complications reported per nursing. D/C home per [facility] Criteria: Yes TONY CARBALLO CRNA Aug 22, 2018 13:22
[2018-08-22 13:35] VITALS: BP 112/55
--- NOTE | 2018-08-22 18:53 | OPERATIVE REPORT ---
DATE OF SERVICE: 08/22/2018 ATTENDING PRIMARY CARE PHYSICIAN: Dr. Calderón. PREOPERATIVE DIAGNOSIS: Symptomatic, recurrent thrombosed left lateral external and internal hemorrhoidal cushion, stage III. POSTOPERATIVE DIAGNOSIS: Symptomatic, recurrent thrombosed left lateral external and internal hemorrhoidal cushion, stage III. PROCEDURES PERFORMED: Anal exam under anesthesia, Fergusson closed hemorrhoidectomy of the left lateral internal and external hemorrhoidal cushion. SURGEON: Lee Cobian MD. ANESTHESIA: General laryngeal mask airway. ESTIMATED BLOOD LOSS: Minimal. FINDINGS: Recurrent thrombosed hemorrhoid of the external hemorrhoidal cushion with an extension of the hemorrhoidal cushion into the internal. The other two hemorrhoidal cushions appeared minimal or stage I. DISPOSITION: The patient tolerated the procedure well. INDICATIONS: The patient is a 47-year-old female who has had swelling in the anus along the left lateral aspect. She was seen by her [facility] physician, found to have a thrombosed hemorrhoid. She were referred to us and we agreed with the diagnosis and she underwent a left lateral hemorrhoidal incision and evacuation of the thrombosed blood. She was medically compliant and taking stool softeners and high fiber as well as Sitz baths. She returned in the office approximately a week later with a recurrent thrombosed hemorrhoid which was more posterior. She reported that the hardness, swelling, pain worsened again and was examined and again found to have a recurrent thrombosed stage III external hemorrhoids. Due to her symptomatic hemorrhoidal cushion, we will proceed with an anal exam under anesthesia as well as a Fergusson closed hemorrhoidectomy of that hemorrhoidal cushion encompassing the external and internal hemorrhoid. DESCRIPTION OF PROCEDURE: The patient was brought to the operating room, laid supine on the table. After adequate IV pain and sedative medications and general laryngeal mask airway intubation, the patient was placed in lithotomy and the perineum was prepped and draped in standard surgical fashion. A 0.5% Marcaine was then used to anesthetize the pudendal nerve adjacent to the ischial tuberosities. The anus then easily dilated using a speculum. The exam was performed and has the left lateral external and internal hemorrhoidal cushion with a stage III. There was also recurrence of the thrombosed external hemorrhoidal cushion. The other two hemorrhoidal cushions appeared to be mild stage I and asymptomatic. We then proceeded with a formal excision of the hemorrhoidal cushion. A stay suture was placed proximal to the internal hemorrhoidal cushion using #0 Vicryl suture. We then proceeded with a formal excision of the external and internal hemorrhoidal cushion in continuity using a Sonicision visualizing the sphincter muscles and preserving them throughout the process. Good hemostasis was observed and using the stay suture, the mucosa and anoderm were then reapproximated with a running #0 Vicryl suture. Good hemostasis was observed. A hemostatic plug with Gelfoam and Surgicel was then placed into the anus. This was followed by a gauze followed by ABD pad and mesh panties. The patient tolerated the procedure well. We will start IV and oral pain medications as well as a clear liquid diet. When she is tolerating clears, has good pain control with oral pain medication and is ambulating well, we will discharge her home. Again, we will recommend a high fiber diet as well as stool softeners as well as laxatives to promote soft stools on a regular scheduled basis as well as Sitz bath at least q.i.d. and after every bowel movement. Job ID: [id number] DocumentID: [id number] Dictated Date: 08/22/2018 11:02:01 [employer] Developer Date: 08/22/2018 18:52:37 Dictated By: LEE COBIAN MD MTDD
== END 2018-08-22 13:42 | disposition home or self-care (01) ==
LOC: SDC 08:33
PROVIDERS: ATTEND Surgery
DX: K64.2 Third degree hemorrhoids (principal); I10 Essential (primary) hypertension; K21.9 Gastro-esophageal reflux disease without esophagitis; Z79.899 Other long term (current) drug therapy; Z98.84 Bariatric surgery status
CPT/HCPCS: 87081

== ENCOUNTER → 2018-12-31 | Outpatient (CLI) | payer OTHER ==
[~2018-12-31] MED LIST changes: +OXYC1TAB12 PO
== END ==
LOC: LAB 08:03
PROVIDERS: ATTEND Surgery
DX: D64.9 Anemia, unspecified (principal); R53.83 Other fatigue
CPT/HCPCS: 36415; 82306; 82607; 82728; 82746; 83540

== ENCOUNTER → 2019-03-23 | Outpatient (CLI) | payer OTHER ==
--- NOTE | 2019-03-23 12:41 | Diagnostic Imaging Report ---
INDICATION: Routine screening. COMPARISON: 03/17/2018 and 03/06/2017. TECHNIQUE: 2D and 3D bilateral screening mammography was performed with CAD. FINDINGS: Scattered fibroglandular densities are identified bilaterally. A cardiac monitoring device over the medial left breast is again noted. No mass or malignant appearing microcalcifications are seen. The axillae are unremarkable. IMPRESSION: No mammographic features suspicious for malignancy are identified. ACR BI-RADS Category 2: Benign findings. Result letter will be mailed to the patient. Note: At least 10% of breast cancer is not imaged by mammography. Dictated by: Dictated on workstation # [id number]
== END ==
LOC: RAD 07:33
PROVIDERS: ATTEND Obstetrics & Gynecology
DX: Z12.31 Encounter for screening mammogram for malignant neoplasm of breast (principal); K59.00 Constipation, unspecified
CPT/HCPCS: 77067

== ENCOUNTER → 2020-02-25 | Outpatient (CLI) | payer OTHER ==
[~2020-02-25] MED LIST changes: -ESTR-85 PO; -METO-387; -METO-387 PO; +MTP25TSR; +MTP25TSR PO; +SYNTEST.HS PO
[2020-02-25 08:22] LABS: HEMATOCRIT 42 % (35-52); HEMOGLOBIN 13.4 G/DL (11.5-16.0); MEAN CORPUSCULAR HEMOGLOBIN 30 PG (25-34); WHITE BLOOD COUNT 5.6 10^3/uL (4.3-11.0)
[2020-02-25 08:23] LABS: BASOPHILS % (AUTO) 1 % (0-10); EOSINOPHILS # (AUTO) 0.1 10^3/uL (0.0-0.3); EOSINOPHILS % (AUTO) 3 % (0-10); LYMPHOCYTES # (AUTO) 2.2 X 10^3 (1.0-4.0); LYMPHOCYTES % (AUTO) 39 % (12-44); MEAN CORPUSCULAR HGB CONC 32 G/DL (32-36); MEAN CORPUSCULAR VOLUME 94 FL (80-99); MEAN PLATELET VOLUME 10.6 FL (7.4-10.4); MONOCYTES # (AUTO) 0.4 X 10^3 (0.0-1.0); MONOCYTES % (AUTO) 7 % (0-12); NEUTROPHILS # (AUTO) 2.9 X 10^3 (1.8-7.8); NEUTROPHILS % (AUTO) 51 % (42-75); PLATELET COUNT 248 10^3/uL (130-400); RED CELL DISTRIBUTION WIDTH 13.2 % (10.0-14.5)
[2020-02-25 08:56] LABS: ALANINE AMINOTRANSFERASE 18 U/L (0-55); ALBUMIN 4.1 GM/DL (3.2-4.5); ALKALINE PHOSPHATASE 50 U/L (40-136); BILIRUBIN,TOTAL 0.5 MG/DL (0.1-1.0); BUN/CREATININE RATIO 27; CALCIUM 9.3 MG/DL (8.5-10.1); CARBON DIOXIDE 28 MMOL/L (21-32); CHLORIDE 107 MMOL/L (98-107); CHOLESTEROL 170 MG/DL (< 200); CREATININE SERUM 0.82 MG/DL (0.60-1.30); GFR ESTIMATED > 60; GLUCOSE 81 MG/DL (70-105); HDL CHOLESTEROL 72 MG/DL (40-60); POTASSIUM 4.2 MMOL/L (3.6-5.0); SODIUM 142 MMOL/L (135-145); TOTAL PROTEIN 7.1 GM/DL (6.4-8.2); TRIGLYCERIDES 99 MG/DL (<150); VLDL CHOLESTEROL 20 MG/DL (5-40)
== END ==
LOC: LAB 07:54
PROVIDERS: ATTEND Obstetrics & Gynecology
DX: Z00.00 Encounter for general adult medical examination without abnormal findings (principal); Z13.220 Encounter for screening for lipoid disorders
CPT/HCPCS: 36415; 80053; 80061; 84443; 85025

== ENCOUNTER → 2020-03-16 | Outpatient (CLI) | payer OTHER ==
[~2020-03-16] MED LIST changes: -OXYC-465 PO; +OXYC-556 PO
== END ==
LOC: LABNPT 15:28
PROVIDERS: ATTEND Family Medicine
DX: U07.1 COVID-19 (principal)
CPT/HCPCS: 87635

== ENCOUNTER → 2020-03-17 | Outpatient (CLI) | payer OTHER | LOC: LABNPT 06:32 | PROVIDERS: ATTEND Family Medicine | DX: U07.1 COVID-19 (principal) ==

== ENCOUNTER → 2020-03-29 | Outpatient (CLI) | payer OTHER ==
--- NOTE | 2020-03-29 09:06 | Diagnostic Imaging Report ---
INDICATION: Postmenopausal female. COMPARISON: None. FINDINGS: AP Spine L2-L4: [BMD (g/cm2): 1.158] [T-Score: -0.3] [Z-Score: 0.2] [BMD Previous: na] [BMD % Change: na] LT Hip Neck: [BMD (g/cm2): 1.036] [T-Score: 0.0] [Z-Score: 0.9] LT Hip Total: [BMD (g/cm2):1.000] [T-Score:-0.1] [Z-Score: 0.5] [BMD Previous: na] [BMD % Change: na] RT Hip Neck: [BMD (g/cm2):1.109] [T-Score:0.5] [Z-Score:1.4] RT Hip Total: [BMD (g/cm2):1.060] [T-score:0.4] [Z-Score:1.0] [BMD Previous:na] [BMD % Change:na] *Indicates significant change from prior examination based on 95% confidence level. World Health Organization criteria for BMD interpretation classify patients as Normal (T-score at or above -1.0), Osteopenic (T-score between -1.0 and -2.5) or Osteoporotic (T-score at or below -2.5). LIMITATIONS AND MODIFICATION: None. FRACTURE RISK (FRAX SCORE): The ten year probability of (%): Major Osteoporotic Fracture: [na] Hip Fracture: [na] IMPRESSION: 1. Normal bone mineral density. 2. Baseline examination. 3. See below National Osteoporosis Foundation guidelines on when to potentially initiate pharmacologic therapy. Based on the National Osteoporosis Foundation Guidelines, pharmacologic treatment should be initiated in any of the following, unless clinical conditions suggest otherwise: * Any patient with prior fragility fracture of the hip or vertebrae. A spine fracture indicates 5X risk for subsequent spine fracture and 2X risk for subsequent hip fracture. * Osteoporosis (T-score <-2.5). * Postmenopausal women and men age 50 and older with low bone mass/osteopenia (T-score between -1.0 and -2.5) by DXA and 10-year major osteoporotic fracture greater than 20% or a 10-year probability of hip fracture greater than 3%. These fracture risks are supplied above in the FRAX score, if applicable. * Clinician judgement and/or patient preferences may indicate treatment for people with 10-year fracture probabilities above or below these levels. Dictated by: Dictated on workstation # [id number]
--- NOTE | 2020-03-29 13:03 | Diagnostic Imaging Report ---
INDICATION: Routine screening. COMPARISON: 03/23/2019 and 03/17/2018. TECHNIQUE: 2D and 3D bilateral screening mammography was performed with CAD. FINDINGS: Both breasts remain heterogeneously dense, limiting the sensitivity of mammography. No dominant mass or malignant appearing microcalcifications are seen. The previously noted cardiac monitoring device on the left has been removed. The axillae are unremarkable. IMPRESSION: No mammographic features suspicious for malignancy are identified. ACR BI-RADS Category 1: Negative. Result letter will be mailed to the patient. Note: At least 10% of breast cancer is not imaged by mammography. Dictated by: Dictated on workstation # [id number]
== END ==
LOC: RAD 08:00
PROVIDERS: ATTEND Obstetrics & Gynecology
DX: Z13.820 Encounter for screening for osteoporosis (principal); Z12.31 Encounter for screening mammogram for malignant neoplasm of breast; U07.1 COVID-19; Z78.0 Asymptomatic menopausal state
CPT/HCPCS: 77063; 77067; 77080

== ENCOUNTER → 2020-09-05 | Outpatient (CLI) | payer OTHER ==
[~2020-09-05] MED LIST changes: +AMLO-250 PO; -AMLO5TAB9 PO
== END ==
LOC: LAB 08:12
PROVIDERS: ATTEND Obstetrics & Gynecology
DX: N95.1 Menopausal and female climacteric states (principal)
CPT/HCPCS: 36415; 82670

== ENCOUNTER → 2020-12-06 | Outpatient (CLI) | payer OTHER ==
[2020-12-06 12:12] LABS: BASOPHILS % (AUTO) 1 % (0-10); EOSINOPHILS # (AUTO) 0.1 10^3/uL (0.0-0.3); EOSINOPHILS % (AUTO) 1 % (0-10); HEMATOCRIT 41 % (35-52); HEMOGLOBIN 13.4 g/dL (11.5-16.0); LYMPHOCYTES # (AUTO) 1.7 10^3/uL (1.0-4.0); LYMPHOCYTES % (AUTO) 30 % (12-44); MEAN CORPUSCULAR HEMOGLOBIN 31 pg (25-34); MEAN CORPUSCULAR HGB CONC 32 g/dL (32-36); MEAN CORPUSCULAR VOLUME 95 fL (80-99); MEAN PLATELET VOLUME 10.3 fL (9.0-12.2); MONOCYTES # (AUTO) 0.5 10^3/uL (0.0-1.0); MONOCYTES % (AUTO) 9 % (0-12); NEUTROPHILS # (AUTO) 3.4 10^3/uL (1.8-7.8); NEUTROPHILS % (AUTO) 60 % (42-75); PLATELET COUNT 230 10^3/uL (130-400); WHITE BLOOD COUNT 5.8 10^3/uL (4.3-11.0)
[2020-12-06 12:22] LABS: ALBUMIN 4.1 GM/DL (3.2-4.5); CHLORIDE 104 MMOL/L (98-107); SODIUM 142 MMOL/L (135-145)
[2020-12-06 12:23] LABS: CALCIUM 9.6 MG/DL (8.5-10.1)
[2020-12-06 12:24] LABS: GLUCOSE 86 MG/DL (70-105)
[2020-12-06 12:26] LABS: BILIRUBIN,TOTAL 0.2 MG/DL (0.1-1.0); CARBON DIOXIDE 28 MMOL/L (21-32)
[2020-12-06 12:28] LABS: ALKALINE PHOSPHATASE 48 U/L (40-136); CREATININE SERUM 0.85 MG/DL (0.60-1.30); GFR ESTIMATED > 60
[2020-12-06 12:29] LABS: BUN/CREATININE RATIO 26
[2020-12-06 12:31] LABS: ALANINE AMINOTRANSFERASE 14 U/L (0-55)
== END ==
LOC: LAB 11:48
PROVIDERS: ATTEND Family Medicine
DX: N63.10 Unspecified lump in the right breast, unspecified quadrant (principal)
CPT/HCPCS: 36415; 80053; 85025; 86618; 86666; 86668; 86757

== ENCOUNTER → 2021-02-28 | Outpatient (CLI) | payer OTHER ==
[2021-02-28 08:58] LABS: BASOPHILS # (AUTO) 0.1 10^3/uL (0.0-0.1); BASOPHILS % (AUTO) 1 % (0-10); EOSINOPHILS # (AUTO) 0.1 10^3/uL (0.0-0.3); EOSINOPHILS % (AUTO) 2 % (0-10); HEMATOCRIT 41 % (35-52); HEMOGLOBIN 13.2 g/dL (11.5-16.0); LYMPHOCYTES % (AUTO) 36 % (12-44); MEAN CORPUSCULAR HEMOGLOBIN 31 pg (25-34); MEAN CORPUSCULAR HGB CONC 32 g/dL (32-36); MEAN CORPUSCULAR VOLUME 95 fL (80-99); MEAN PLATELET VOLUME 10.7 fL (9.0-12.2); MONOCYTES # (AUTO) 0.4 10^3/uL (0.0-1.0); MONOCYTES % (AUTO) 7 % (0-12); NEUTROPHILS % (AUTO) 54 % (42-75); PLATELET COUNT 258 10^3/uL (130-400); WHITE BLOOD COUNT 5.7 10^3/uL (4.3-11.0)
[2021-02-28 09:00] LABS: ALBUMIN 3.8 GM/DL (3.2-4.5)
[2021-02-28 09:01] LABS: CALCIUM 9.2 MG/DL (8.5-10.1)
[2021-02-28 09:02] LABS: TOTAL PROTEIN 6.9 GM/DL (6.4-8.2)
[2021-02-28 09:04] LABS: BILIRUBIN,TOTAL 0.5 MG/DL (0.1-1.0)
[2021-02-28 09:06] LABS: CREATININE SERUM 0.83 MG/DL (0.60-1.30)
== END ==
LOC: LAB 08:43
PROVIDERS: ATTEND Obstetrics & Gynecology
DX: Z00.00 Encounter for general adult medical examination without abnormal findings (principal)
CPT/HCPCS: 36415; 80053; 80061; 84443; 85025

== ENCOUNTER → 2021-03-31 | Outpatient (CLI) | payer OTHER ==
--- NOTE | 2021-04-03 08:57 | Diagnostic Imaging Report ---
INDICATION: Routine screening. COMPARISON: 03/29/2020 and 03/23/2019. TECHNIQUE: 2D and 3D bilateral screening mammography was performed with CAD. FINDINGS: Both breasts are heterogeneously dense, limiting the sensitivity of mammography. The parenchymal pattern is stable. No mass or malignant-appearing microcalcifications are seen. The axillae are unremarkable. IMPRESSION: No mammographic features suspicious for malignancy are identified. ACR BI-RADS Category 1: Negative. Result letter will be mailed to the patient. Note: At least 10% of breast cancer is not imaged by mammography. Dictated by: Dictated on workstation # [id number]
== END ==
LOC: RAD 12:34
PROVIDERS: ATTEND Obstetrics & Gynecology
DX: Z12.31 Encounter for screening mammogram for malignant neoplasm of breast (principal)
CPT/HCPCS: 77063; 77067

== ENCOUNTER 2022-03-16 03:37 | Emergency (ER) | payer OTHER ==
[~2022-03-16] VITALS: Ht 173 cm; Wt 61.5 kg
[~2022-03-16 03:37] MED LIST changes: -ESTR2TAB PO; +ESTR2TAB3 PO
[2022-03-16] MEDS ORDERED: FLUC100T10 (04:01)
[2022-03-16] MEDS ORDERED: DEXA6TAB (04:01)
[2022-03-16] MEDS ORDERED: ALPR1TAB7 (04:01)
[2022-03-16] MEDS ORDERED: HYDR25SU8 (04:01)
[2022-03-16] MEDS ORDERED: AMOX1TAB12 (04:01)
[2022-03-16] MEDS ORDERED: FAMOTIDINE 20 MG (PEPCID) TABLET PO STA (04:11)
[2022-03-16] MEDS ORDERED: NS IV 1000 ML 1,000 ML IV STA (04:11)
[2022-03-16] MEDS ORDERED: LIDOCAINE 2% VISCOUS 15 ML UDC PO ONE (04:15)
[2022-03-16] MEDS ORDERED: ACETAMINOPHEN 500 MG TAB (TYLENOL) PO ONE (04:15)
[2022-03-16] MEDS ORDERED: ANTACID SUSP 30 ML UDC (MYLANTA) PO ONE (04:15)
[2022-03-16] MEDS ORDERED: KETOROLAC 30 MG/ML VIAL IVP ONE (04:15)
[2022-03-16] MEDS ORDERED: ONDANSETRON 4 MG/2 ML (SDV) Z0FRAN IVP ONE (04:15)
--- NOTE | 2022-03-16 04:25 | ED Abdominal Pain ---
General Chief Complaint: Abdominal/GI Problems Stated Complaint: WAS COVID,NOW PAIN ALL OVER,ABD PAIN,BLACK STOOLS Nursing Triage Note: reports covid + 03/05/22 with continued dark/tarry diarrhea, abdominal pain, decreased po intake x2 days. Source of Information: Patient Exam Limitations: No Limitations (PARIS JORDAN MD) History of Present Illness Date Seen by Provider: Mar 16, 2022 Time Seen by Provider: 03:45 Initial Comments 51-year-old female with no pertinent past medical history coming in after she was positive for COVID on March 05, started Paxlovid that day, later on there was concern for infection in the lungs so started on Augmentin, and continues to not improve. Had some dark tarry stools initially after the Augmentin, has persistently had diarrhea. The stool that she had today was not dark or bloody. Does not take any blood thinners. Does not take any chronic NSAIDs. Her main issue is severe abdominal pain worse in her lower abdomen, feels like glass, nothing seems to make it better. She is never really had pain like this before. Has some nausea associated with it but no vomiting. Had a temp up to 101 as of yesterday. Has not had anything for pain today. Is otherwise denying any chest pain, shortness of breath, cough, focal weakness or numbness, neck stiffness, or any other concerns. (PARIS JORDNA MD) Allergies and Home Medications Allergies Coded Allergies: No Known Drug Allergies (Verified , 02/18/18) Patient Home Medication List Home Medication List Reviewed: Yes (PARIS JORDAN MD) Alprazolam (Alprazolam) 1 Mg Tablet, (Reported) Entered as Reported by: HERNAN VALLECILLO on 03/16/22400 Last Action: New Order Amoxicillin/Potassium Clav (Amox Tr-K Clv 875-125 mg Tab) 875 Mg-125 Mg Tablet, (Reported) Entered as Reported by: HERNAN VALLECILLO on 03/16/22400 Last Action: New Order Dexamethasone (Dexamethasone) 6 Mg Tablet, (Reported) Entered as Reported by: HERNAN VALLECILLO on 03/16/22400 Last Action: New Order Estradiol (Estradiol Tablet) 2 Mg Tablet, 2 MG PO DAILY, (Reported) Entered as Reported by: ANDREA TRIANA on 04/20/16 1032 Fluconazole (Fluconazole) 100 Mg Tablet, (Reported) Entered as Reported by: HERNAN VALLECILLO on 03/16/22400 Last Action: New Order Hydrocortisone Acetate (Anucort-Hc) 25 Mg Supp.rect, (Reported) Entered as Reported by: HERNAN VALLECILLO on 03/16/22400 Last Action: New Order Hyoscyamine Sulfate (Levsin-Sl) 0.125 Mg Tab.subl, 0.125 MG SL Q4H PRN for SPASMS Prescribed by: PARIS JORDAN on 03/16/22 06 Ondansetron (Ondansetron Odt) 4 Mg Tab.rapdis, 4 MG PO Q6H PRN for NAUSEA/VOMITING-1ST LINE Prescribed by: PARIS JORDAN on 03/16/22 06 Oxycodone HCl/Acetaminophen (Percocet 10-325 mg Tablet) 1 Each Tablet, 1 TAB PO Q4H PRN for PAIN-MODERATE Prescribed by: LEE COBIAN on 08/22/18 1010 Review of Systems Review of Systems Constitutional: fever EENTM: No Nose Congestion Respiratory: Denies Cough Cardiovascular: Denies Chest Pain Gastrointestinal: Abdominal Pain, Diarrhea, Nausea Genitourinary: Denies Burning Musculoskeletal: no symptoms reported Skin: no symptoms reported Psychiatric/Neurological: No Symptoms Reported Endocrine: No Symptoms Reported Hematologic/Lymphatic: No Symptoms Reported (PARIS JORDAN MD) All Other Systems Reviewed Negative Unless Noted: Yes (PARIS JORDAN MD) Past Ctldpro-Eikubq-Nosbdw Hx Patient Social History Tobacco Use?: No Substance use?: No Alcohol Use?: No Pt feels they are or have been: No (PARIS JORDAN MD) Immunizations Up To Date First/Initial COVID19 Vaccinat: x2 (PARIS JORDAN MD) Seasonal Allergies Seasonal Allergies: Yes (PARIS JORDAN MD) Past Medical History Surgery/Hospitalization HX: weight loss surgery, hysterectomy, retinal reattachment, cholecystectomy, hemorrhoidectomy Surgeries: Yes (DETACHED RETINA BILAT, gastric sleeve) Section, Gallbladder, Hysterectomy Respiratory: No Cardiac: Yes (HEART CATH-09/05/17-CLEAN, LOOP RECORDER, AFLUTTER (NO ISSUE FOR 6MO)) Hypertension Neurological: Yes (November 2015-passed out and had a seizure, r/t B/P dropping) Reproductive Disorders: No Female Reproductive Disorders: Denies BORDER PATROL AGENT History: Hysterectomy Sexually Transmitted Disease: No HIV/AIDS: No Genitourinary: No Gastrointestinal: Yes Gastroesophageal Reflux, Hemorrhoids Musculoskeletal: No Endocrine: No HEENT: Yes Loss of Vision: Bilateral Hearing Impairment: Denies Cancer: No Psychosocial: No Integumentary: No Blood Disorders: No Adverse Reaction/Blood Tranf: No (N/A) (PARIS JORDAN MD) Family Medical History Cardiovascular disease 19 FATHER 19 MOTHER Myocardial infarction 19 FATHER 19 MOTHER Physical Exam Vital Signs Vital Signs - First Documented 03/16/22 03:49 Temp 36.3 Pulse 63 Resp 16 B/P (MAP) 119/66 (83) Pulse Ox 98 O2 Delivery Room Air (VINICIUS PA MD) Vital Signs Capillary Refill : Less Than 3 Seconds (PARIS JORDAN MD) Height/Weight/BMI Height: 5'8.00" Weight: 154lbs. 0.0oz. 69.695169ql; 20.00 BMI Method:Stated General Appearance: WD/WN, mild distress HEENT: PERRL/EOMI, normal ENT inspection, pharynx normal Neck: non-tender, full range of motion, supple, normal inspection Respiratory: chest non-tender, lungs clear, normal breath sounds, no respiratory distress, no accessory muscle use Cardiovascular: regular rate, rhythm, no edema, no murmur Gastrointestinal: normal bowel sounds, soft; No distended, No guarding, No rebound; tenderness Extremities: normal range of motion, non-tender, normal inspection, no pedal edema, no calf tenderness, normal capillary refill Back: normal inspection, no CVA tenderness Neurologic/Psychiatric: no motor/sensory deficits, alert, normal mood/affect Skin: normal color, warm/dry Lymphatic: no adenopathy (PARIS JORDAN MD) Progress/Results/Core Measures Results/Orders Lab Results Laboratory Tests Test 03/16/22 04:21 03/16/22 04:47 Range/Units White Blood Count 10.0 4.3-11.0 10^3/uL Red Blood Count 4.50 3.80-5.11 10^6/uL Hemoglobin 13.6 11.5-16.0 g/dL Hematocrit 41 35-52 % Mean Corpuscular Volume 92 80-99 fL Mean Corpuscular Hemoglobin 30 25-34 pg Mean Corpuscular Hemoglobin Concent 33 32-36 g/dL Red Cell Distribution Width 13.0 10.0-14.5 % Platelet Count 285 130-400 10^3/uL Mean Platelet Volume 10.5 9.0-12.2 fL Immature Granulocyte % (Auto) 1 % Neutrophils (%) (Auto) 58 42-75 % Lymphocytes (%) (Auto) 27 12-44 % Monocytes (%) (Auto) 9 0-12 % Eosinophils (%) (Auto) 4 0-10 % Basophils (%) (Auto) 0 0-10 % Neutrophils # (Auto) 5.8 1.8-7.8 10^3/uL Lymphocytes # (Auto) 2.7 1.0-4.0 10^3/uL Monocytes # (Auto) 0.9 0.0-1.0 10^3/uL Eosinophils # (Auto) 0.4 H 0.0-0.3 10^3/uL Basophils # (Auto) 0.0 0.0-0.1 10^3/uL Immature Granulocyte # (Auto) 0.1 0.0-0.1 10^3/uL Sodium Level 143 135-145 MMOL/L Potassium Level 3.9 3.6-5.0 MMOL/L Chloride Level 104 98-107 MMOL/L Carbon Dioxide Level 29 21-32 MMOL/L Anion Gap 10 5-14 MMOL/L Blood Urea Nitrogen 21 H 7-18 MG/DL Creatinine 0.76 0.60-1.30 MG/DL Estimat Glomerular Filtration Rate 94 BUN/Creatinine Ratio 28 Glucose Level 83 70-105 MG/DL Calcium Level 8.6 8.5-10.1 MG/DL Corrected Calcium 9.2 8.5-10.1 MG/DL Magnesium Level 2.0 1.6-2.4 MG/DL Total Bilirubin 0.3 0.1-1.0 MG/DL Aspartate Amino Transf (AST/SGOT) 13 5-34 U/L Alanine Aminotransferase (ALT/SGPT) 24 0-55 U/L Alkaline Phosphatase 53 40-136 U/L C-Reactive Protein High Sensitivity 0.81 H 0.00-0.50 MG/DL Total Protein 5.8 L 6.4-8.2 GM/DL Albumin 3.3 3.2-4.5 GM/DL Lipase 48 8-78 U/L Urine Color YELLOW Urine Clarity CLEAR Urine pH 7.0 5-9 Urine Specific [place] 1.025 H 1.016-1.022 Urine Protein NEGATIVE NEGATIVE Urine Glucose (UA) NEGATIVE NEGATIVE Urine Ketones NEGATIVE NEGATIVE Urine Nitrite NEGATIVE NEGATIVE Urine Bilirubin NEGATIVE NEGATIVE Urine Urobilinogen 0.2 < = 1.0 MG/DL Urine Leukocyte Esterase NEGATIVE NEGATIVE Urine RBC (Auto) NEGATIVE NEGATIVE Urine RBC NONE /HPF Urine WBC NONE /HPF Urine Squamous Epithelial Cells 0-2 /HPF Urine Crystals NONE /LPF Urine Bacteria NEGATIVE /HPF Urine Casts NONE /LPF Urine Mucus NEGATIVE /LPF Urine Culture Indicated NO (VINICIUS PA MD) Micro Results Microbiology 03/16/22 C. difficile GDH Antigen & Toxins - Final, Complete (VINICIUS PA MD) Medications Given in ED (VINICIUS PA MD) Vital Signs/I&O 03/16/22 03/16/22 03/16/22 03/16/22 03:49 04:22 04:22 06:54 Temp 36.3 36.3 36.3 36.5 Pulse 63 54 Resp 16 16 B/P (MAP) 119/66 (83) 97/52 Pulse Ox 98 98 O2 Delivery Room Air Room Air (VINICIUS PA MD) Blood Pressure Mean: 83 Progress Progress Note : Progress Note 51-year-old female with above history coming in due to continued fevers and abdominal pain. ABCs were intact and vitals were stable on presentation. Physical exam with some abdominal tenderness but no signs of peritonitis. An IV was placed and basic labs were obtained and were significant for normal creatinine, normal electrolytes, only slightly elevated CRP which is nonspecific, normal white blood cell count. CT abdomen pelvis ordered and is pending at this time. She did receive IV Toradol as well as morphine after reassessment for her pain. She also received a liter of IV fluids given the high specific gravity in her urine which could point towards dehydration. C. difficile is on the differential given she has recently been on antibiotics with no liquid stools with abdominal pain. If she produces a specimen in the ER will send it to the lab. Otherwise she may benefit from an outpatient order. She will be signed out to the oncoming physician pending the CT results. (PARIS JORDAN MD) Diagnostic Imaging Diagonstic Imaging: CT (abd/pelvis) (PARIS JORDAN MD) Diagonstic Imaging: CT (abd/pelvis) Comments [facility] [place], [place] NAME: ARELY TANNER [facility] REC#: [id number] PT STATUS: REG ER : 1970 PHYSICIAN: PARIS JORDAN MD ADMIT DATE: 03/16/22/ER Draft Date of Exam:03/16/22 CT ABD/PELV W (APPENDICITIS) PROCEDURE: CT abdomen and pelvis with contrast, rule out appendicitis. TECHNIQUE: Multiple contiguous axial images were obtained through the abdomen and pelvis after the administration of intravenous contrast. All CT scans use one or more of the following dose optimizing techniques: automated exposure control, MA and/or KvP adjustment based on patient size and exam type or iterative reconstruction. INDICATION: Right lower quadrant abdominal pain. COMPARISON: None. FINDINGS: Cholecystectomy. Hysterectomy. Postoperative findings of gastric sleeve surgery. Lung bases are clear. The liver, pancreas, spleen, adrenals, kidneys, collecting systems and bladder are negative. The appendix is not well seen and may be surgically absent. No suspicious inflammatory findings in the region of the cecum. Fluid throughout most of the colon. No evidence of small bowel obstruction. No free intraperitoneal air or fluid. No lymphadenopathy. No acute osseous findings. IMPRESSION: 1. Fluid throughout most of the colon suggesting a diarrheal state. No evidence of bowel obstruction. No free intraperitoneal air or fluid. 2. Cholecystectomy. Gastric sleeve surgery. Hysterectomy. Dictated on workstation # [id number] Dict: 03/16/22 0637 Trans: 03/16/22 0641 CV [id number] Interpreted by: ALLISON LUZ MD Electronically signed by: (VINICIUS PA MD) Departure Impression Primary Impression: COVID-19 Additional Impressions: Diarrhea Qualified Codes: R19.7 - Diarrhea, unspecified Abdominal pain Qualified Codes: R10.30 - Lower abdominal pain, unspecified Disposition: 30 STILL A PATIENT Condition: Stable Departure-Patient Inst. Decision time for Depature: 06:48 (VINICIUS PA MD) Referrals: NAS ROBLES MD (PCP/Family) Primary Care Physician Patient Instructions: Abdominal Pain, Adult ED, Diarrhea, Adult ED Add. Discharge Instructions: Drink plenty of fluids to stay well hydrated, water and gatorade. We will call you today with the results of your c diff test. If you have c diff we will you call you in antibiotics to your pharmacy. Do not take immodium until you have the results of your c diff test. You will need to talk to Dr Ashley office about whether or not to continue your rectal suppository steroids. If you develop worsening pain, fever, bloody stools or any other emergent, concerning symptoms, please come back to the ER for a re-evaluation. Dr Jordan sent prescriptions to your pharmacy for nausea medications and spasm medications for your belly. Scripts Ondansetron (Ondansetron Odt) 4 Mg Tab.rapdis 4 MG PO Q6H PRN for NAUSEA/VOMITING-1ST LINE for 5 Days, #20 TAB Prov: PARIS JORDAN MD 03/16/22 Hyoscyamine Sulfate (Levsin-Sl) 0.125 Mg Tab.subl 0.125 MG SL Q4H PRN for SPASMS for 3 Days, #12 TAB 0 Refills Prov: PARIS JORDAN MD 03/16/22 Work/School Note: Work Release Form Date Seen in the Emergency Department: Mar 16, 2022 Return to Work: Mar 18, 2022 Restrictions: Return-No Fever (24hrs), Return-No Vomiting(24hrs) PARIS JORDAN MD Mar 16, 2022 04:25 VINICIUS PA MD Mar 16, 2022 06:53
[2022-03-16 04:31] LABS: BASOPHILS % (AUTO) 0 % (0-10); EOSINOPHILS # (AUTO) 0.4 10^3/uL (0.0-0.3); EOSINOPHILS % (AUTO) 4 % (0-10); HEMATOCRIT 41 % (35-52); HEMOGLOBIN 13.6 g/dL (11.5-16.0); LYMPHOCYTES # (AUTO) 2.7 10^3/uL (1.0-4.0); LYMPHOCYTES % (AUTO) 27 % (12-44); MEAN CORPUSCULAR HEMOGLOBIN 30 pg (25-34); MEAN CORPUSCULAR HGB CONC 33 g/dL (32-36); MEAN CORPUSCULAR VOLUME 92 fL (80-99); MEAN PLATELET VOLUME 10.5 fL (9.0-12.2); MONOCYTES # (AUTO) 0.9 10^3/uL (0.0-1.0); MONOCYTES % (AUTO) 9 % (0-12); NEUTROPHILS # (AUTO) 5.8 10^3/uL (1.8-7.8); NEUTROPHILS % (AUTO) 58 % (42-75); PLATELET COUNT 285 10^3/uL (130-400)
[2022-03-16 04:43] LABS: ALBUMIN 3.3 GM/DL (3.2-4.5)
[2022-03-16 04:44] LABS: POTASSIUM 3.9 MMOL/L (3.6-5.0)
[2022-03-16 04:45] LABS: CALCIUM 8.6 MG/DL (8.5-10.1)
[2022-03-16 04:46] LABS: TOTAL PROTEIN 5.8 GM/DL (6.4-8.2)
[2022-03-16 04:48] LABS: BILIRUBIN,TOTAL 0.3 MG/DL (0.1-1.0)
[2022-03-16 04:50] LABS: CREATININE SERUM 0.76 MG/DL (0.60-1.30)
[2022-03-16 04:52] LABS: BILIRUBIN,URINE NEGATIVE (NEGATIVE); CLARITY,URINE CLEAR; COLOR,URINE YELLOW; GLUCOSE, URINE (UA) NEGATIVE (NEGATIVE); KETONES,URINE NEGATIVE (NEGATIVE); LEUKOCYTE ESTERASE ,URINE NEGATIVE (NEGATIVE); NITRITE,URINE NEGATIVE (NEGATIVE); PROTEIN,URINE NEGATIVE (NEGATIVE)
[2022-03-16 05:08] LABS: BACTERIA,URINE NEGATIVE /HPF; SQUAMOUS EPITHELIAL CELL,UR 0-2 /HPF
[2022-03-16] MEDS ORDERED: NS 100 ML (IVPB) BAG IV ONE (05:15)
[2022-03-16] MEDS ORDERED: CATHETER FLUSH 10 ML SYR IV PRN (05:15)
[2022-03-16] MEDS ORDERED: IOHEXOL 350 MG/ML 100 ML (OMNIPAQUE 350) VIAL IV ONE (05:15)
[2022-03-16] MEDS ORDERED: morphine INJ 10 MG/ML 1ML (SYR OR VIAL) IVP STA (05:19)
[2022-03-16] MEDS ORDERED: HYOS0.1283 SL (06:02)
[2022-03-16] MEDS ORDERED: ONDA4TAB11 PO (06:02)
--- NOTE | 2022-03-16 06:42 | Diagnostic Imaging Report ---
PROCEDURE: CT abdomen and pelvis with contrast, rule out appendicitis. TECHNIQUE: Multiple contiguous axial images were obtained through the abdomen and pelvis after the administration of intravenous contrast. All CT scans use one or more of the following dose optimizing techniques: automated exposure control, MA and/or KvP adjustment based on patient size and exam type or iterative reconstruction. INDICATION: Right lower quadrant abdominal pain. COMPARISON: None. FINDINGS: Cholecystectomy. Hysterectomy. Postoperative findings of gastric sleeve surgery. Lung bases are clear. The liver, pancreas, spleen, adrenals, kidneys, collecting systems and bladder are negative. The appendix is not well seen and may be surgically absent. No suspicious inflammatory findings in the region of the cecum. Fluid throughout most of the colon. No evidence of small bowel obstruction. No free intraperitoneal air or fluid. No lymphadenopathy. No acute osseous findings. IMPRESSION: 1. Fluid throughout most of the colon suggesting a diarrheal state. No evidence of bowel obstruction. No free intraperitoneal air or fluid. 2. Cholecystectomy. Gastric sleeve surgery. Hysterectomy. Dictated by: Dictated on workstation # [id number]
[2022-03-16 06:54] VITALS: BP 97/52
== END 2022-03-16 06:58 | disposition home or self-care (01) ==
LOC: EDUNIT# 03:37 → ER 03:42
DX: U07.1 COVID-19 (principal); R19.7 Diarrhea, unspecified; R10.30 Lower abdominal pain, unspecified
CPT/HCPCS: 36415; 74177; 80053; 81000; 83690; 83735; 85025; 86141; 87324; 87449

== ENCOUNTER → 2022-04-02 | Outpatient (CLI) | payer OTHER ==
[~2022-04-02] MED LIST changes: +ALPR1TAB7; +AMOX1TAB12; +DEXA6TAB; +FLUC100T10; +HYDR25SU8; +HYOS0.1283 SL; +ONDA4TAB11 PO
--- NOTE | 2022-04-02 12:50 | Diagnostic Imaging Report ---
INDICATION: Routine screening. Comparison is made with prior mammogram 03/31/2021 and 03/29/2020. 2-D and 3-D bilateral screening mammography was performed with CAD. CAD is utilized. The current study was also evaluated with a Computer Aided Detection (CAD) system. Both breasts are heterogeneously dense, limiting the sensitivity of mammography. The parenchymal pattern is stable. No mass or malignant-appearing microcalcifications are seen. There are benign calcifications are present. Axillae are unremarkable. IMPRESSION: BI-RADS Category 2 No mammographic features suspicious for malignancy are identified. ACR BI-RADS Category 2: Benign findings. Result letter will be mailed to the patient. Note: At least 10% of breast cancer is not imaged by mammography. Dictated by: Dictated on workstation # [id number]
== END ==
LOC: RAD 09:08
PROVIDERS: ATTEND Obstetrics & Gynecology
DX: Z12.31 Encounter for screening mammogram for malignant neoplasm of breast (principal)
CPT/HCPCS: 77063; 77067

== ENCOUNTER 2022-08-01 05:54 | Outpatient (CLI) | payer BC ==
[~2022-08-01] VITALS: Ht 172.7 cm; Wt 62.6 kg
[2022-08-01] MEDS ORDERED: EST5V5 IM (13:15)
== END 2022-08-01 13:24 | disposition home or self-care (01) ==
LOC: PREOP 05:54
PROVIDERS: ATTEND Internal Medicine
DX: Z01.818 Encounter for other preprocedural examination (principal)

== ENCOUNTER 2022-08-10 07:28 | Day surgery (SDC) | payer BC, OTHER ==
--- NOTE | 2022-07-31 06:44 | HISTORY AND PHYSICAL ---
DATE OF SERVICE: 08/10/2022 COLONOSCOPY HISTORY AND PHYSICAL HISTORY OF PRESENT ILLNESS: The patient is a 51-year-old white female referred by Dr. Maynard for her first screening colonoscopy. She did report undergoing a diagnostic colonoscopy roughly 15 years ago that was reportedly unremarkable. She denies bowel habit change, bright red blood per rectum, melena or change in weight. FAMILY HISTORY: She is not aware of any family history for colon cancer or inflammatory bowel disease. PAST MEDICAL HISTORY: Noncontributory. Currently, she is getting estradiol via injection monthly. PAST SURGICAL HISTORY: TAHBSO for benign reasons, cholecystectomy and has had bilateral retinal reattachment and hemorrhoidectomy x2 in 2019. SOCIAL HISTORY: She works at our local hospital and reports no past smoking history and no significant alcohol intake. REVIEW OF SYSTEMS: CONSTITUTIONAL: Denies night sweats, chills, fever or change in weight. PULMONARY: Denies cough, wheezing or shortness of breath. CARDIOVASCULAR: Denies orthopnea, PND, pedal edema or chest discomfort. GASTROINTESTINAL: As noted in the HPI. PHYSICAL EXAMINATION: GENERAL: Reveals a white female who appeared to be in no acute distress. HEENT: Unremarkable. CHEST: Clear. CARDIOVASCULAR: Reveals regular rate and rhythm without murmur, S3, or S4. ABDOMEN: Soft, supple without mass, organomegaly, or tenderness. EXTREMITIES: No cyanosis, clubbing or edema. ASSESSMENT AND PLAN: The patient is being set up for screening colonoscopy, deemed to be of average risk as noted above. Prep instructions were given. Questions were answered. Thank you for referral of this pleasant lady. Job ID: [id number] DocumentID: [id number] Dictated Date: 07/16/2022 16:03:48 Binding Machine Operator Date: 07/16/2022 16:47:00 Dictated By: ROLF GREEN MD
[~2022-08-10] VITALS: Ht 172.7 cm; Wt 62.6 kg
[~2022-08-10 07:28] MED LIST changes: +EST5V5 IM
--- NOTE | 2022-08-10 07:47 | Pre-Op Note & Conscious Sedat ---
Pre-Operative Progress Note Date H&P Reviewed: Aug 10, 2022 Time H&P Reviewed: 07:47 History & Physical: H&P Reviewed, Patient Examed, No changes noted Pre-Op Diagnosis: screening Conscious Sedation Pre-Proced ASA Score 1 For ASA 3 and 4: Consider anesthesia and medical clearance. Also, for patients with a history of failed moderate sedation consider anesthesia. Airway Lungs Heart ASA score ASA 1: a normal healthy patient ASA 2: a patient with a mild systemic disease (mid diabetes, controlled hypertension, obesity ASA 3: a patient with a severe systemic disease that limits activity (angina, COPD, prior Myocardial infarction) ASA 4: a patient with an incapacitating disease that is a constant threat to life (CHF, renal failure) ASA 5: a moribund patient not expected to survive 24 hrs. (ruptured aneurysm) ASA 6: a declared brain- patient whose organs are being harvested. For emergent operations, add the letter E after the classification Mallampati Classification Grade 1 Sedation Plan Analgesia, Amnesia, Plan communicated to team members, Discussed options with patient/fam, Discussed risks with patient/fam The patient is an appropriate candidate to undergo the planned procedure, sedation, and anesthesia. The patient immediately re-assessed prior to indication. ROLF GREEN MD Aug 10, 2022 07:47
[2022-08-10] MEDS ORDERED: MIDAZOLAM 2 MG/2 ML (VERSED) VIAL ONE (07:50)
[2022-08-10] MEDS ORDERED: PROPOFOL INJECTION 50 ML IV ONE ×2 (07:50→08:27)
[2022-08-10] MEDS ORDERED: LACTATED RINGERS 1,000 ML IV STA (07:50)
[2022-08-10 07:54] VITALS: BP 119/67
[2022-08-10 08:35] VITALS: BP 90/55
--- NOTE | 2022-08-10 08:36 | Progress Note-Post Operative ---
Post-Procedure Note Physician (s)/Supervisor Weaving (s) Physician ROLF GREEN MD Pre-Procedure Diagnosis Pre-Procedure Diagnosis: screening Post-Procedure Diagnosis Post-operative diagnosis: Prior to undergoing colonoscopy digital rectal evaluation was performed. Anal sphincter tone was normal and the perianal reflexes intact. No abnormalities noted on digital inspection anal canal or distal rectal vault. The colonoscope was inserted into the rectum and under direct visualization advanced to the cecum. The cecum was identified by indication of the ileocecal valve and cecal strap. Photographic documentation obtained. A careful inspection was made as the colonoscope was withdrawn. Quality the prep was good. Findings: There are no evidence for internal or external hemorrhoids in the rectum sigmoid colon descending colon transverse colon ascending colon and cecum were unremarkable with no evidence for neoplasia or diverticular disease. Assessment: Normal colonoscopy to the cecum would advise consideration for repeat screening colonoscopy in 10 years. CC: Dr. Willian Calderón MD. ROLF GREEN MD Aug 10, 2022 08:36
[2022-08-10 08:40] VITALS: BP 97/53
[2022-08-10 08:45] VITALS: BP 95/52
[2022-08-10 09:17] VITALS: BP 102/69
--- NOTE | 2022-08-10 12:08 | Anesthesia-General Post-Op ---
MAC Patient Condition Mental Status/LOC: Same as Preop Cardiovascular: Satisfactory Nausea/Vomiting: Absent Respiratory: Satisfactory Pain: Controlled Complications: Absent Post Op Complications Complications None Follow Up Care/Instructions Patient Instructions None needed. Anesthesiology Discharge Order Discharge Order Patient is doing well, no complaints, stable vital signs, no apparent adverse anesthesia problems. No complications reported per nursing. RAFIA AGUILAR CRNA Aug 10, 2022 12:08
== END 2022-08-10 09:27 | disposition home or self-care (01) ==
LOC: ENDO 07:28
PROVIDERS: ATTEND Internal Medicine
DX: Z12.11 Encounter for screening for malignant neoplasm of colon (principal)

== ENCOUNTER 2022-09-17 10:02 | Outpatient (CLI) | payer BC ==
[~2022-09-17] VITALS: Ht 172.7 cm; Wt 63.6 kg
== END 2022-09-17 14:14 | disposition home or self-care (01) ==
LOC: PREOP 10:02
PROVIDERS: ATTEND Specialist
DX: Z01.818 Encounter for other preprocedural examination (principal)

== ENCOUNTER → 2022-09-21 | Day surgery (SDC) | payer BC ==
[~2022-09-21] VITALS: Ht 172.4 cm; Wt 63.6 kg
[~2022-09-21] MED LIST changes: +PHENYLEPHRINE 10% OPHTH (NEO-SYN) 5 ML BTL OU PRN; +TROPICAMIDE 1% OPH SOLN (MYDRIACYL) 15 ML BTL OU PRN
[2022-09-21] MEDS: TETRACAINE 0.5% OPHTH SOLN 4 ML BTL (SINGLE DOSE ONLY) OU PRN ×2 (11:04→11:07)
[2022-09-21 11:05] VITALS: BP 102/73
--- NOTE | 2022-09-21 11:05 | Ophthalmologist Pre-Op Note ---
Pre-Operative Progress Note H&P Reviewed The H&P was reviewed, patient examined and no changes noted. Date H&P Reviewed: Sep 21, 2022 Time H&P Reviewed: 11:05 Pre-Op Dx Secondary Cataract, Bilateral Eyes LUCRECIA ACUNA MD Sep 21, 2022 11:05
--- NOTE | 2022-09-21 11:55 | Ophthalmology Operative Report ---
YAG Capsulotomy PREOPERATIVE DIAGNOSIS: Secondary Cataract Bilateral POSTOPERATIVE DIAGNOSIS: Secondary Cataract Bilateral PROCEDURE: YAG Capsulotomy, Bilateral SURGEON: Heladio Acuna ANESTHESIA: Topical anesthesia COMPLICATIONS: None ESTIMATED BLOOD LOSS: Minimal DESCRIPTION OF PROCEDURE: After proper informed consent was obtained, the patient's, a 51 female , received one drop of Tropicamide and one drop of Tetracaine in each eye. The patient was then placed at the YAG laser and using a power of [4.0] millijoules and bursts [21 ] right eye and [17 ] left eye were used to fashion a central capsulotomy. The patient tolerated the procedure well without complications. HELADIO ACUNA MD Sep 21, 2022 11:55
== END | disposition home or self-care (01) ==
LOC: SDC 10:52
PROVIDERS: ATTEND Specialist
DX: H26.40 Unspecified secondary cataract (principal)

== ENCOUNTER 2023-01-02 12:40 | Outpatient (RCR) | payer BC ==
[~2023-01-02 12:40] MED LIST changes: -PHENYLEPHRINE 10% OPHTH (NEO-SYN) 5 ML BTL OU PRN; -TROPICAMIDE 1% OPH SOLN (MYDRIACYL) 15 ML BTL OU PRN
== END 2023-01-04 | disposition still patient (30) ==
PROVIDERS: ATTEND Obstetrics & Gynecology
DX: N94.819 Vulvodynia, unspecified (principal)

== ENCOUNTER 2023-01-28 10:40 | Outpatient (RCR) | payer BC | END 2023-02-04 | disposition home or self-care (01) | PROVIDERS: ATTEND Obstetrics & Gynecology | DX: N94.819 Vulvodynia, unspecified (principal) ==

== ENCOUNTER 2023-02-15 09:02 | Outpatient (RCR) | payer BC | END 2023-03-07 | disposition home or self-care (01) | PROVIDERS: ATTEND Obstetrics & Gynecology | DX: N94.819 Vulvodynia, unspecified (principal) ==

== ENCOUNTER → 2023-04-17 | Outpatient (CLI) | payer BC ==
--- NOTE | 2023-04-17 11:58 | Diagnostic Imaging Report ---
INDICATION: Screening. EXAMINATION: Bilateral digital 2D and 3D screening with CAD. COMPARISON: March 2022, March 2021, and March 2020. BREAST DENSITY: 3. FINDINGS: No breast mass, spiculated lesion, architectural distortion, suspicious calcifications, or changes to suggest malignancy. IMPRESSION: Negative. ACR BI-RADS Category 1: Negative. Result letter will be mailed to the patient. Note: At least 10% of breast cancer is not imaged by mammography. Dictated by: Dictated on workstation # [id number]
== END ==
LOC: RAD 09:47
PROVIDERS: ATTEND Obstetrics & Gynecology
DX: Z12.31 Encounter for screening mammogram for malignant neoplasm of breast (principal)
CPT/HCPCS: 77063; 77067